=== PATIENT | male | born 1930 | race Caucasian/White ===

== ENCOUNTER 2017-11-19 11:39 | Day surgery (SDC) | payer OTHER ==
--- OUTSIDE RECORDS SUMMARY | 2017-11-19 11:49 | XMS REPORT | Clinical Summary ---
:1930 Author Organization [facility] Address [address] [place] [address] Care Team Providers Name Role Phone Hetal Perez MD Primary Care Provider Allergies No Known Allergies Current Medications Prescription Sig. Disp. Refills Start End Status Date Date FOLIC Take by Active ACID/MULTIVIT-MIN/LUTEIN mouth. (CENTRUM SILVER ORAL) cholecalciferol, vitamin Take 2,000 Active D3, (VITAMIN D3) 2,000 Units by unit capsule capsule mouth daily. mometasone (NASONEX) 50 2 sprays into 17 g 11 09/29/19 Active mcg/actuation nasal each nostril 17 sprayIndications: Seasonal daily. allergic rhinitis due to pollen cyanocobalamin 1,000 Inject 1,000 Active mcg/mL injection mcg into the shoulder, thigh, or buttocks once. carboxymethylcellulose 1 % Apply to eye. Active ophthalmic solution prednisoLONE acetate (PRED 2 drops. 03/09/19 Active FORTE) 1 % ophthalmic 16 suspension busPIRone (BUSPAR) 5 MG TAKE 1 TABLET 90 tablet 0 09/05/19 Active tabletIndications: BY MOUTH ONCE 18 Generalized anxiety DAILY disorder amLODIPine (NORVASC) 2.5 TAKE 1 TABLET 90 tablet 0 10/12/19 Active mg tabletIndications: BY MOUTH 18 Essential hypertension DAILY gabapentin (NEURONTIN) 300 Take 300 mg Active mg capsule by mouth 3 (three) times a day. tamsulosin (FLOMAX) 0.4 mg Take 0.4 mg Active capsule by mouth daily. denosumab (PROLIA) 60 Inject 60 mg Active mg/mL syringe syringe under the skin once. escitalopram (LEXAPRO) 5 Take 2.5 mg Active MG tablet by mouth daily. esomeprazole (NexIUM) 40 Take 40 mg by Active MG capsule mouth daily before breakfast. cimetidine (TAGAMET HB) Take 200 mg Active 200 MG tablet by mouth 2 (two) times a day. vitamins Take 1 Active A,C,R-pzba-jxlcpm capsule by (PRESERVISION AREDS) mouth daily. [id number] hzgi-yj-aeeb capsule acetaminophen (TYLENOL) Take 1 tablet 40 tablet 0 10/30/19 Active 500 MG tablet (500 mg 18 018 total) by mouth every 6 (six) hours as needed for fever (fever > 100) for up to 30 days. FERUMOXYTOL IV Infuse into a Discontinued venous 018 catheter. denosumab (PROLIA) 60 Inject 60 mg Discontinued mg/mL syringe syringe under the 018 skin once. Every 6 tmonths cycloSPORINE (RESTASIS) Administer 1 Discontinued 0.05 % ophthalmic emulsion drop to both 018 eyes every 12 (twelve) hours. acetaminophen (TYLENOL) Take 325 mg Discontinued 325 MG tablet by mouth 018 every 6 (six) hours as needed for fever. busPIRone (BUSPAR) 5 MG Take 1 tablet 90 tablet 1 09/29/19 Discontinued tabletIndications: (5 mg total) 17 018 Generalized anxiety by mouth disorder daily. tamsulosin (FLOMAX) 0.4 mg Take 1 90 capsule 3 09/29/19 Discontinued capsule,extended release capsule (0.4 17 018 24hrIndications: Benign mg total) by prostatic hyperplasia mouth daily. without lower urinary tract symptoms, unspecified morphology amLODIPine (NORVASC) 2.5 Take 1 tablet 90 tablet 3 09/29/19 Discontinued mg tabletIndications: (2.5 mg 17 018 Essential hypertension total) by mouth daily. denosumab (PROLIA) 60 Inject 60 mg Discontinued mg/mL syringe syringe under the 018 skin once. esomeprazole (NexIUM) 40 Take 1 30 capsule 11 05/10/19 Discontinued MG capsuleIndications: AVM capsule (40 18 018 (arteriovenous mg total) by malformation) of small mouth daily bowel, acquired, before Angiodysplasia of stomach breakfast. busPIRone (BUSPAR) 5 MG TAKE 1 TABLET 90 tablet 0 05/22/19 Discontinued tabletIndications: BY MOUTH 18 018 Generalized anxiety DAILY disorder escitalopram (LEXAPRO) 5 Take 1 tablet 90 tablet 2 06/22/19 MG tablet (5 mg total) 18 018 by mouth daily for 90 days. acetaminophen (TYLENOL) Take 1,000 mg Discontinued 500 MG tablet by mouth 018 every 6 (six) hours as needed for mild pain. clindamycin (CLEOCIN) 150 Take 150 mg Discontinued MG capsule by mouth 018 every 6 (six) hours. levoFLOXacin (LEVAQUIN) Take 1 tablet 10 tablet 0 10/30/19 500 MG tablet (500 mg 18 018 total) by mouth every other day for 10 days. doxycycline (VIBRAMYCIN) Take 1 20 capsule 0 10/30/19 100 MG capsule capsule (100 18 018 mg total) by mouth 2 (two) times a day for 10 days. Active Problems Problem Noted Date SIRS (systemic inflammatory response syndrome) (HCC) 10/24/2017 Iron deficiency anemia due to chronic blood loss 10/23/2017 Fe deficiency anemia 10/23/2017 Seasonal allergic rhinitis due to pollen 09/28/2016 Overview: Uses nasonex which allievates symptoms of rhinitis and nasal congestion Last Assessment & Plan: Continue on nasaonex; refills for 1 year provided Essential hypertension 09/28/2016 Overview: On low dose amlodipine 2.5 mg; no changes per cards; BP slightly elevated in office but usually per runs low. Last Assessment & Plan: Hypertension is unchanged. Continue current treatment regimen. Blood pressure will be reassessed at the next regular appointment. Amaurosis fugax of left eye 07/06/2016 Overview: Overview: Underwent CEA not stent due to risk of bleeding from AVMs Bradycardia by electrocardiogram 07/06/2016 Overview: EAB on outside images - repeat with cards - Dr. Garcia - notes reviewed. 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 Last Assessment & Plan: Refills for flomax provided. Chronic kidney disease, stage III (moderate) ([facility]) 01/28/2016 Overview: Dr. Le; Stage 3 stable; monitor calcium levels. Pernicious anemia 11/30/2015 Overview: Dr. Bone Stroke ([facility]) 11/30/2015 Iron deficiency anemia 06/01/2015 Overview: Feeling very tired and head throbs and usually feels this way when needs transfusion; last transfusion was 2 weeks ago. Last Assessment & Plan: Recheck cbc Anxiety disorder 04/22/2014 Overview: Well controllled with buspar prn Osteoporosis 01/21/2014 Overview: On prolia - Bone density study, 06/03/2013 - patient FRAX score indicated treatment with bisphosphates; did not tolerate fosamax and reclast not an option given renal dysfunction and patient was started on prolia with good results. Improvement of T score noted on bone density 2016 AP spine (L1-L4) BMD: 1.471 g/cm2 T-Score: 2.2 Dual Femur (Total Mean): BMD: 0.842 g/cm2 T-Score: -1.3 2013 Bone mineral density measurement Lumbar spine 1.546 gm/cm2 Femoral neck 0.808 gm/cm2 Standard deviation from young adult population (T-score) Lumbar spine 2.7 Femoral neck -2.0 Standard deviation for age adjusted population (Z-score) Lumbar spine 3.4 Femoral neck -0.4 Last Assessment & Plan: next infusion due in October; needs referral to see Dr. Greene formally to get prolia if still indicated. Needs vit D and calcium levels checked prior to prolia. Angiodysplasia of stomach Overview: Per Dr. Combs; AVM (arteriovenous malformation) of small bowel, acquired Encounters Date Type Specialty Care Team Description 11/15/2017 Telephone Internal Medicine Hetal Perez MD 11/14/2017 Infusion Oncology Jocelyne Bone Iron deficiency anemiaStarla MD unspecified iron deficiency anemia type (Primary Dx) 11/07/2017 Infusion Oncology Jocelyne Bone Iron deficiency anemiaStarla MD unspecified iron Champagne, deficiency anemia type GABRIELA Stokes (Primary Dx) 11/06/2017 Lab Lab Jocelyne Bone MD 11/06/2017 Orders Only Hematology and Mary, Oncology Albian, CASE MANAGEMENT COORDINATOR 10/31/2017 Infusion Oncology Jocelyne Bone Iron deficiency anemiaStarla MD unspecified iron Gardianos, deficiency anemia type GABRIELA Last (Primary Dx) 10/30/2017 Orders Only Oncology Neo Pierre RN 10/23/2017 Hospital Encounter General Internal Michelle Wyatth - Dony Guzmán MD 10/29/2017 Mynor Godoy MD 10/23/2017 Orders Only Oncology Neo Pierre RN 10/17/2017 Infusion Oncology Jocelyne Bone Iron deficiency anemiaStarla MD unspecified iron Angelia, deficiency anemia type GABRIELA Aly (Primary Dx) 10/11/2017 Refill Internal Medicine Chris, Essential hypertension Hetal Fernandez MD 10/03/2017 Infusion Oncology Jocelyne Bone Iron deficiency anemiaStarla MD unspecified iron deficiency anemia type (Primary Dx) 09/19/2017 Infusion Oncology Jocelyne Bone Iron deficiency anemiaStarla MD unspecified iron deficiency anemia type (Primary Dx) 09/12/2017 Infusion Oncology Jocelyne Bone Iron deficiency anemiaStarla MD unspecified iron Angelia, deficiency anemia type GABRIELA Aly (Primary Dx) 09/11/2017 Orders Only Oncology Neo Pierre RN 09/10/2017 Lab Lab Jocelyne Bone MD 09/10/2017 Orders Only Hematology and Mary, Oncology Albina, CASE MANAGEMENT COORDINATOR 09/05/2017 Infusion Oncology Jocelyne Bone Iron deficiency anemiaStarla MD unspecified iron deficiency anemia type (Primary Dx) 09/05/2017 Orders Only Oncology Neo Pierre RN 09/04/2017 Refill Internal Medicine Chris, Generalized anxiety kassie Lutz MD 08/31/2017 Hospital Encounter Hematology and Jocelyne Bone Iron deficiency anemia, Oncology MD Starla unspecified iron deficiency anemia type 08/30/2017 Lab Lab Jocelyne Bone Blood loss anemia MD Starla (Primary Dx) 08/30/2017 Orders Only Hematology and Mary, Oncology Albina, CASE MANAGEMENT COORDINATOR 08/23/2017 Infusion Oncology Jocelyne Bone Iron deficiency anemiaStarla MD unspecified iron deficiency anemia type (Primary Dx) 08/23/2017 Orders Only Oncology Rosanna Rosas RN 08/08/2017 Infusion Oncology Jocelyne Bone Iron deficiency anemiaStarla MD unspecified iron Jayson, deficiency anemia type Sveta RN (Primary Dx) 07/26/2017 Infusion Oncology Jocelyne Bone Iron deficiency anemiaStarla MD unspecified iron deficiency anemia type (Primary Dx) 07/25/2017 Infusion Oncology Jocelyne Bone Iron deficiency anemiaStarla MD unspecified iron deficiency anemia type (Primary Dx) 07/25/2017 Orders Only Oncology Neo Pierre RN 07/11/2017 Infusion Oncology Jcoelyne Bone Iron deficiency anemiaStarla MD unspecified iron Jayson, deficiency anemia type GABRIELA Bangura (Primary Dx) 07/06/2017 Infusion Oncology Jocelyne Bone Iron deficiency anemiaStarla MD unspecified iron deficiency anemia type (Primary Dx) 07/06/2017 Orders Only Oncology Rosanna Rosas RN 07/03/2017 Orders Only Hematology and Mary, Oncology Albina, CASE MANAGEMENT COORDINATOR 06/27/2017 Infusion Oncology Jocelyne Bone Iron deficiency Starla gardner MD unspecified iron deficiency anemia type (Primary Dx) 06/22/2017 Infusion Oncology Jocelyne Bone Iron deficiency anemiaStarla MD unspecified iron deficiency anemia type (Primary Dx) 06/22/2017 Orders Only Oncology Rosanna Rosas RN 06/21/2017 Office Visit Internal Medicine Chris, Annual physical exam ( Primary Dx); Kimani Lutz regarding end of life decision making 06/20/2017 Orders Only Hematology and Mary, Oncology Albina, CASE MANAGEMENT COORDINATOR 06/20/2017 Orders Only Hematology and Mary, Oncology Albina, CASE MANAGEMENT COORDINATOR 06/13/2017 Hospital Encounter Hematology and Jocelyne Bone Iron deficiency anemia, Oncology MD Starla unspecified iron deficiency anemia type 06/11/2017 Lab Lab Jocelyne Bone MD 06/11/2017 Orders Only Hematology and Mary, Oncology Albina, CASE MANAGEMENT COORDINATOR 06/07/2017 Hospital Encounter Hematology and Jocelyne Bone Iron deficiency anemia, Oncology MD Starla unspecified iron deficiency anemia type 06/06/2017 Hospital Encounter Hematology and Jocelyne Bone Iron deficiency anemia, Oncology MD Starla unspecified iron deficiency anemia type 05/31/2017 Lab Lab Jocelyne Bone Common variable agammaglobulinemia ( Primary Dx); MD Starla Blood loss anemia 05/31/2017 Hospital Encounter Hematology and Jocelyne Bone Iron deficiency anemia, Oncology MD Starla unspecified iron deficiency anemia type 05/29/2017 Orders Only Hematology and Mary, Oncology HERMINIA Montemayor 05/23/2017 Hospital Encounter Hematology and Jocelyne Bone Iron deficiency anemia, Oncology MD Starla unspecified iron deficiency anemia type 05/22/2017 Lab Lab Jocelyne Bone Blood loss anemia MD Starla (Primary Dx) 05/22/2017 Orders Only Hematology and Mary, Oncology HERMINIA Montemayor 05/21/2017 Hospital Encounter Gastroenterology Garret, Iron deficiency anemia, unspecified iron deficiency anemia type (Primary Dx); Arcenio Pernicious anemia; MD Aiden Cerebrovascular accident (CVA), unspecified mechanism; Angiodysplasia of stomach; AVM (arteriovenous malformation) of small bowel, acquired; Generalized anxiety disorder; Benign prostatic hyperplasia without lower urinary tract symptoms; Temporary cerebral vascular dysfunction; Chronic kidney disease, stage III (moderate) 05/21/2017 Refill Internal Medicine Sadi Perez anxiety Hetal kassie Fernandez MD 05/21/2017 Anesthesia Event Gastroenterology Jabari Luna MD 05/21/2017 Procedure Pass Gastroenterology 05/21/2017 Surgery Gastroenterology Garret EGD W/ SMALL BOWEL Arcenio ENTEROSCOPY with APC to MD Aiden AVM's 05/17/2017 Hospital Encounter Hematology and Jocelyne Bone Iron deficiency anemia, Oncology MD Starla unspecified iron deficiency anemia type 05/16/2017 Hospital Encounter Hematology and Jocelyne Bone deficiency anemia, Oncology MD Starla unspecified iron deficiency anemia type 05/10/2017 Hospital Encounter Hematology and Jocelyne Bone Iron deficiency anemia, Oncology MD Starla unspecified iron deficiency anemia type 05/09/2017 Office Visit Gastroenterology Garret AVM (arteriovenous malformation) of small bowel, acquired (Primary Dx); Arcenio Angiodysplasia of stomach MD Aiden 05/09/2017 Lab Lab Jocelyne Bone Canceled (Scheduling MD Starla Error) 05/09/2017 Lab Lab Jocelyne Bone Blood loss anemia MD Starla (Primary Dx) 05/09/2017 Documentation Gastroenterology Deirdre Felix MA 05/08/2017 Orders Only Hematology and Mary, Oncology Albina, CASE MANAGEMENT COORDINATOR 04/27/2017 Hospital Encounter Hematology and Jocelyne Bone Iron deficiency anemia, Oncology MD Starla unspecified iron deficiency anemia type 04/25/2017 Hospital Encounter Hematology and Jocelyne Bone Iron deficiency anemia, Oncology MD Starla unspecified iron deficiency anemia type 04/20/2017 Hospital Encounter Hematology and Jocelyne Bone Iron deficiency anemia, Oncology MD Starla unspecified iron deficiency anemia type 04/19/2017 Orders Only Hematology and Mary, Oncology Albina, CASE MANAGEMENT COORDINATOR 04/19/2017 Orders Only Hematology and Mary, Oncology Albina, CASE MANAGEMENT COORDINATOR 04/12/2017 Hospital Encounter Hematology and Jocelyne Bone Iron deficiency anemia, Oncology MD Starla unspecified iron deficiency anemia type 04/10/2017 Orders Only Hematology and Mary, Oncology Albina, CASE MANAGEMENT COORDINATOR 04/04/2017 Hospital Encounter Hematology and Jocelyne Bone Iron deficiency anemia, Oncology MD Starla unspecified iron deficiency anemia type 03/30/2017 Hospital Encounter Hematology and Jocelyne Bone Iron deficiency anemia, Oncology MD Starla unspecified iron deficiency anemia type 03/29/2017 Orders Only Hematology and Mary, Oncology Albina, CASE MANAGEMENT COORDINATOR 03/21/2017 Hospital Encounter Hematology and Jocelyne Bone Iron deficiency anemia, unspecified iron deficiency anemia type; Oncology MD Starla AVM (arteriovenous malformation) of small bowel, acquired 03/16/2017 Orders Only Hematology and Mary, Oncology Albina, CASE MANAGEMENT COORDINATOR 03/14/2017 Hospital Encounter Hematology and Jocelyne Bone Canceled Oncology MD Starla (Department/Provider) 03/13/2017 Hospital Encounter Hematology and Jocelyne Bone Iron deficiency anemia, Oncology MD Starla unspecified iron deficiency anemia type 03/13/2017 Orders Only Hematology and Mary, Oncology Albina, CASE MANAGEMENT COORDINATOR 03/05/2017 Office Visit Rheumatology Jc, Osteopenia of both thighs ( Primary Dx); Torrey Shepherd MD Primary osteoarthritis of both hands; Angiodysplasia of stomach 02/28/2017 Hospital Encounter Hematology and Jocelyne Bone Iron deficiency anemia, Oncology MD Starla unspecified iron deficiency anemia type 02/27/2017 Orders Only Hematology and Mary, Oncology Albina, CASE MANAGEMENT COORDINATOR 02/15/2017 Hospital Encounter Hematology and Jocelyne Bone Iron deficiency anemia, Oncology MD Starla unspecified iron deficiency anemia type 02/08/2017 Hospital Encounter Hematology and Jocelyne Bone Iron deficiency anemia, Oncology MD Starla unspecified iron deficiency anemia type 02/08/2017 Orders Only Hematology and Mary, Oncology Albina, CASE MANAGEMENT COORDINATOR 02/08/2017 Orders Only Hematology and Mary, Oncology Albina, CASE MANAGEMENT COORDINATOR 02/07/2017 Orders Only Hematology and Mary, Oncology Albina, CASE MANAGEMENT COORDINATOR 01/19/2017 Hospital Encounter Hematology and Jocelyne Bone Iron deficiency anemia, Oncology MD Starla unspecified iron deficiency anemia type 01/17/2017 Hospital Encounter Hematology and Jocelyne Bone Iron deficiency anemia, Oncology MD Starla unspecified iron deficiency anemia type 12/27/2016 Hospital Encounter Hematology and Jocelyne Bone Iron deficiency anemia, Oncology MD Starla unspecified iron deficiency anemia type 12/21/2016 Hospital Encounter Hematology and Jocelyne Bone Iron deficiency anemia, Oncology MD Starla unspecified iron deficiency anemia type 12/21/2016 Orders Only Hematology and Mary, Oncology Albina, CASE MANAGEMENT COORDINATOR 12/20/2016 Hospital Encounter Hematology and oJcelyne Bone Iron deficiency anemia, Oncology MD Starla unspecified iron deficiency anemia type 12/14/2016 [facility] ChrisHetal MD 12/13/2016 Hospital Encounter Hematology and Jocelyne Bone Iron deficiency anemia, Oncology MD Starla unspecified iron deficiency anemia type 12/11/2016 Orders Only Hematology and Mary, Oncology Albina, CASE MANAGEMENT COORDINATOR 12/05/2016 Hospital Encounter Hematology and Jocelyne Bone Iron deficiency anemia, Oncology MD Starla unspecified iron deficiency anemia type 12/04/2016 Lab Lab Jocelyne Bone MD 12/04/2016 Orders Only Hematology and Mary Oncology Albina, CASE MANAGEMENT COORDINATOR 11/24/2016 Hospital Encounter Hematology and Jocelyne Bone Iron deficiency anemia, Oncology MD Starla unspecified iron deficiency anemia type 11/22/2016 Orders Only Hematology and Mary Oncology Albina CASE MANAGEMENT COORDINATOR after 11/18/2016 Immunizations Name Dates Previously Given Next Due FLUCELVAX QUAD PF (0.5mL syringe) 10/24/2017 Influenza Trivalent 01/04/2016, 11/19/2013 Pneumococcal Polysaccharide 03/22/2011 Tdap 04/22/2014 Family History Medical History Relation Name Comments Aplastic anemia Mother Relation Name Status Comments Father Mother Social History Tobacco Use Types Packs/Day Years Used Date Never Smoker Smokeless Tobacco: Never Used Alcohol Use Drinks/Week oz/Week Comments No Sex Assigned at Date Recorded Not on file Last Filed Vital Signs Vital Sign Reading Time Taken Blood Pressure 118/58 11/14/2017 3:15 PM CDT Pulse 69 11/14/2017 3:15 PM CDT Temperature 36.2 C (97.1 F) 11/14/2017 3:15 PM CDT Respiratory Rate 18 11/14/2017 3:15 PM CDT Oxygen Saturation 97% 11/14/2017 3:15 PM CDT Inhaled Oxygen Concentration - - Weight 78.7 kg (173 lb 6.4 oz) 11/14/2017 9:17 AM CDT Height 175.3 cm (5' 9") 11/14/2017 9:17 AM CDT Body Mass Index 25.61 11/14/2017 9:17 AM CDT Plan of Treatment Date Type Specialty Care Team Description 11/28/2017 Infusion Oncology Jocelyne Bone MD [address] [place] [address] [phone] 12/12/2017 Infusion Oncology Jocelyne Bone MD [address] [place] [address] [phone] 12/26/2017 Infusion Oncology Jocelyne Bone MD [address] [place] [address] [phone] Health Maintenance Due Date Last Done Comments SHINGRIX VACCINE (#1) 01/03/1980 ZOSTER VACCINE 1990 PNEUMOCOCCAL-13 1995 PNEUMOCOCCAL POLYSACCHARIDE VACCINE Completed 03/22/2011 AGE 65 AND OVER INFLUENZA VACCINE Completed 10/24/2017, 01/04/2016, 11/19/2013 Procedures Procedure Name Priority Date/Time Associated Comments Diagnosis TRANSFUSE RED BLOOD CELLS Routine 11/14/2017 Iron deficiency 3:36 PM CDT anemia, unspecified iron deficiency anemia type TRANSFUSE RED BLOOD CELLS Routine 11/14/2017 Iron deficiency 1:31 PM CDT anemia, unspecified iron deficiency anemia type PREPARE RBC Timed 11/14/2017 Iron deficiency Results for 9:51 AM CDT anemia, this procedure unspecified iron are in the deficiency results anemia type section. TYPE AND SCREEN Timed 11/14/2017 Iron deficiency Results for 9:51 AM CDT anemia, this procedure unspecified iron are in the deficiency results anemia type section. SMEAR REVIEW Routine 11/14/2017 Results for 9:34 AM CDT this procedure are in the results section. HC COMPLETE BLD COUNT W/AUTO Routine 11/14/2017 Iron deficiency Results for DIFF 9:34 AM CDT anemia, this procedure unspecified iron are in the deficiency results anemia type section. TRANSFUSE RED BLOOD CELLS Routine 11/07/2017 Iron deficiency 3:33 PM CDT anemia, unspecified iron deficiency anemia type TRANSFUSE RED BLOOD CELLS Routine 11/07/2017 Iron deficiency 12:45 PM CDT anemia, unspecified iron deficiency anemia type PREPARE RBC Routine 11/06/2017 Results for 9:32 AM CDT this procedure are in the results section. TYPE AND SCREEN Routine 11/06/2017 Results for 9:32 AM CDT this procedure are in the results section. TRANSFUSE RED BLOOD CELLS STAT 10/31/2017 Iron deficiency 1:10 PM CDT anemia, unspecified iron deficiency anemia type MANUAL DIFFERENTIAL Routine 10/31/2017 Results for 9:19 AM CDT this procedure are in the results section. CBC WITH PLATELET AND Routine 10/31/2017 Iron deficiency Results for DIFFERENTIAL 9:19 AM CDT anemia, this procedure unspecified iron are in the deficiency results anemia type section. PREPARE RBC Timed 10/31/2017 Iron deficiency Results for 8:57 AM CDT anemia, this procedure unspecified iron are in the deficiency results anemia type section. TYPE AND SCREEN Timed 10/31/2017 Iron deficiency Results for 8:57 AM CDT anemia, this procedure unspecified iron are in the deficiency results anemia type section. CBC WITH PLATELET AND Routine 10/29/2017 Results for DIFFERENTIAL 6:20 AM CDT this procedure are in the results section. ZZESTIMATED GFR Routine 10/28/2017 Results for 9:19 AM CDT this procedure are in the results section. BASIC METABOLIC PANEL Routine 10/28/2017 Results for 9:19 AM CDT this procedure are in the results section. CBC WITH PLATELET AND Routine 10/28/2017 Results for DIFFERENTIAL 5:50 AM CDT this procedure are in the results section. CBC WITH PLATELET AND Routine 10/27/2017 Results for DIFFERENTIAL 5:30 AM CDT this procedure are in the results section. PREPARE RBC Timed 10/26/2017 Results for 11:09 AM CDT this procedure are in the results section. PREPARE RBC Timed 10/26/2017 Results for 11:09 AM CDT this procedure are in the results section. TYPE AND SCREEN Timed 10/26/2017 Results for 11:09 AM CDT this procedure are in the results section. HEMOGLOBIN & HEMATOCRIT Routine 10/26/2017 Results for 7:13 AM CDT this procedure are in the results section. SMEAR REVIEW Routine 10/26/2017 Results for 4:20 AM CDT this procedure are in the results section. CBC WITH PLATELET AND Routine 10/26/2017 Results for DIFFERENTIAL 4:20 AM CDT this procedure are in the results section. ZZESTIMATED GFR Routine 10/26/2017 Results for 4:00 AM CDT this procedure are in the results section. CREATINE KINASE, TOTAL (CPK) Routine 10/26/2017 Results for 4:00 AM CDT this procedure are in the results section. BASIC METABOLIC PANEL Routine 10/26/2017 Results for 4:00 AM CDT this procedure are in the results section. VANCOMYCIN LEVEL, TROUGH Timed 10/25/2017 Results for 1:00 PM CDT this procedure are in the results section. ZZESTIMATED GFR Routine 10/25/2017 Results for 5:15 AM CDT this procedure are in the results section. PARATHYROID HORMONE Routine 10/25/2017 Results for 5:15 AM CDT this procedure are in the results section. BASIC METABOLIC PANEL Routine 10/25/2017 Results for 5:15 AM CDT this procedure are in the results section. US RENAL Routine 10/24/2017 Results for 6:25 PM CDT this procedure are in the results section. XR CHEST 1 VW PORTABLE Routine 10/24/2017 Results for 9:29 AM CDT this procedure are in the results section. SMEAR REVIEW Routine 10/24/2017 Results for 6:00 AM CDT this procedure are in the results section. HC COMPLETE BLD COUNT W/AUTO Routine 10/24/2017 Results for DIFF 6:00 AM CDT this procedure are in the results section. ZZESTIMATED GFR Routine 10/24/2017 Results for 4:00 AM CDT this procedure are in the results section. BASIC METABOLIC PANEL Routine 10/24/2017 Results for 4:00 AM CDT this procedure are in the results section. URINALYSIS SCREEN AND Routine 10/24/2017 Results for MICROSCOPY, WITH REFLEX TO 12:30 AM CDT this procedure CULTURE are in the results section. URINE CULTURE Routine 10/24/2017 Results for 12:30 AM CDT this procedure are in the results section. US DUPLEX VENOUS LOWER EXTREMITY Routine 10/23/2017 Results for BILATERAL 5:05 PM CDT this procedure are in the results section. BLOOD CULTURE, AEROBIC & Routine 10/23/2017 Results for ANAEROBIC 4:25 PM CDT this procedure are in the results section. BLOOD CULTURE, AEROBIC & Routine 10/23/2017 Results for ANAEROBIC 4:25 PM CDT this procedure are in the results section. ZZESTIMATED GFR Routine 10/23/2017 Results for 3:23 PM CDT this procedure are in the results section. BASIC METABOLIC PANEL Routine 10/23/2017 Results for 3:23 PM CDT this procedure are in the results section. PREPARE RBC Timed 10/23/2017 Results for 2:30 PM CDT this procedure are in the results section. TYPE AND SCREEN Timed 10/23/2017 Results for 2:30 PM CDT this procedure are in the results section. TRANSFUSE RED BLOOD CELLS STAT 10/17/2017 Iron deficiency 4:35 PM CDT anemia, unspecified iron deficiency anemia type TRANSFUSE RED BLOOD CELLS STAT 10/17/2017 Iron deficiency 2:50 PM CDT anemia, unspecified iron deficiency anemia type PREPARE RBC Timed 10/17/2017 Iron deficiency Results for 9:50 AM CDT anemia, this procedure unspecified iron are in the deficiency results anemia type section. MANUAL DIFFERENTIAL Routine 10/17/2017 Results for 9:50 AM CDT this procedure are in the results section. TYPE AND SCREEN Routine 10/17/2017 Iron deficiency Results for 9:50 AM CDT anemia, this procedure unspecified iron are in the deficiency results anemia type section. CBC WITH PLATELET AND Routine 10/17/2017 Iron deficiency Results for DIFFERENTIAL 9:50 AM CDT anemia, this procedure unspecified iron are in the deficiency results anemia type section. TRANSFUSE RED BLOOD CELLS STAT 10/03/2017 Iron deficiency 5:01 PM CDT anemia, unspecified iron deficiency anemia type TRANSFUSE RED BLOOD CELLS STAT 10/03/2017 Iron deficiency 2:15 PM CDT anemia, unspecified iron deficiency anemia type MANUAL DIFFERENTIAL Routine 10/03/2017 Results for 9:33 AM CDT this procedure are in the results section. CBC WITH PLATELET AND Routine 10/03/2017 Iron deficiency Results for DIFFERENTIAL 9:33 AM CDT anemia, this procedure unspecified iron are in the deficiency results anemia type section. PREPARE RBC Timed 10/03/2017 Iron deficiency Results for 9:21 AM CDT anemia, this procedure unspecified iron are in the deficiency results anemia type section. TYPE AND SCREEN Timed 10/03/2017 Iron deficiency Results for 9:21 AM CDT anemia, this procedure unspecified iron are in the deficiency results anemia type section. TRANSFUSE RED BLOOD CELLS STAT 09/19/2017 Iron deficiency 2:03 PM CDT anemia, unspecified iron deficiency anemia type TYPE AND SCREEN Routine 09/19/2017 Iron deficiency Results for 9:20 AM CDT anemia, this procedure unspecified iron are in the deficiency results anemia type section. HC COMPLETE BLD COUNT W/AUTO STAT 09/19/2017 Iron deficiency Results for DIFF 9:20 AM CDT anemia, this procedure unspecified iron are in the deficiency results anemia type section. PREPARE RBC Timed 09/19/2017 Iron deficiency Results for 9:14 AM CDT anemia, this procedure unspecified iron are in the deficiency results anemia type section. TRANSFUSE RED BLOOD CELLS Routine 09/12/2017 Iron deficiency 2:48 PM CDT anemia, unspecified iron deficiency anemia type TRANSFUSE RED BLOOD CELLS Routine 09/12/2017 Iron deficiency 2:46 PM CDT anemia, unspecified iron deficiency anemia type PREPARE RBC Routine 09/10/2017 Results for 1:40 PM CDT this procedure are in the results section. TYPE AND SCREEN Routine 09/10/2017 Results for 1:40 PM CDT this procedure are in the results section. HC COMPLETE BLD COUNT W/AUTO STAT 09/05/2017 Iron deficiency Results for DIFF 9:00 AM CDT anemia, this procedure unspecified iron are in the deficiency results anemia type section. TYPE AND SCREEN STAT 09/05/2017 Iron deficiency Results for 8:59 AM CDT anemia, this procedure unspecified iron are in the deficiency results anemia type section. TRANSFUSE RED BLOOD CELLS Routine 09/03/2017 Iron deficiency 11:20 AM CDT anemia, unspecified iron deficiency anemia type TRANSFUSE RED BLOOD CELLS Routine 08/31/2017 Iron deficiency 11:43 AM CDT anemia, unspecified iron deficiency anemia type PREPARE RBC Routine 08/30/2017 Results for 11:02 AM CDT this procedure are in the results section. TYPE AND SCREEN Routine 08/30/2017 Blood loss Results for 11:02 AM CDT anemia this procedure are in the results section. HC COMPLETE BLD COUNT W/AUTO Routine 08/30/2017 Blood loss Results for DIFF 11:02 AM CDT anemia this procedure are in the results section. TRANSFUSE RED BLOOD CELLS STAT 08/23/2017 Iron deficiency 3:49 PM CDT anemia, unspecified iron deficiency anemia type TRANSFUSE RED BLOOD CELLS STAT 08/23/2017 Iron deficiency 2:22 PM CDT anemia, unspecified iron deficiency anemia type PREPARE RBC Timed 08/23/2017 Iron deficiency Results for 9:42 AM CDT anemia, this procedure unspecified iron are in the deficiency results anemia type section. SMEAR REVIEW Routine 08/23/2017 Results for 9:42 AM CDT this procedure are in the results section. TYPE AND SCREEN Routine 08/23/2017 Iron deficiency Results for 9:42 AM CDT anemia, this procedure unspecified iron are in the deficiency results anemia type section. HC COMPLETE BLD COUNT W/AUTO Routine 08/23/2017 Iron deficiency Results for DIFF 9:42 AM CDT anemia, this procedure unspecified iron are in the deficiency results anemia type section. TRANSFUSE RED BLOOD CELLS STAT 08/08/2017 Iron deficiency 1:24 PM CDT anemia, unspecified iron deficiency anemia type PREPARE RBC Timed 08/08/2017 Iron deficiency Results for 9:34 AM CDT anemia, this procedure unspecified iron are in the deficiency results anemia type section. TYPE AND SCREEN Timed 08/08/2017 Iron deficiency Results for 9:34 AM CDT anemia, this procedure unspecified iron are in the deficiency results anemia type section. HC COMPLETE BLD COUNT W/AUTO Routine 08/08/2017 Iron deficiency Results for DIFF 9:34 AM CDT anemia, this procedure unspecified iron are in the deficiency results anemia type section. TRANSFUSE RED BLOOD CELLS Routine 07/26/2017 Iron deficiency 2:02 PM CDT anemia, unspecified iron deficiency anemia type TRANSFUSE RED BLOOD CELLS Routine 07/26/2017 Iron deficiency 11:28 AM CDT anemia, unspecified iron deficiency anemia type HC COMPLETE BLD COUNT W/AUTO Routine 07/25/2017 Iron deficiency Results for DIFF 10:01 AM CDT anemia, this procedure unspecified iron are in the deficiency results anemia type section. PREPARE RBC Timed 07/25/2017 Iron deficiency Results for 9:59 AM CDT anemia, this procedure unspecified iron are in the deficiency results anemia type section. TYPE AND SCREEN Timed 07/25/2017 Iron deficiency Results for 9:59 AM CDT anemia, this procedure unspecified iron are in the deficiency results anemia type section. TRANSFUSE RED BLOOD CELLS Routine 07/11/2017 Iron deficiency 5:06 PM CDT anemia, unspecified iron deficiency anemia type PREPARE RBC Timed 07/11/2017 Iron deficiency Results for 9:36 AM CDT anemia, this procedure unspecified iron are in the deficiency results anemia type section. TYPE AND SCREEN Timed 07/11/2017 Iron deficiency Results for 9:36 AM CDT anemia, this procedure unspecified iron are in the deficiency results anemia type section. HC COMPLETE BLD COUNT W/AUTO Routine 07/11/2017 Iron deficiency Results for DIFF 9:36 AM CDT anemia, this procedure unspecified iron are in the deficiency results anemia type section. TRANSFUSE RED BLOOD CELLS Routine 07/06/2017 Iron deficiency 2:47 PM CDT anemia, unspecified iron deficiency anemia type TRANSFUSE RED BLOOD CELLS Routine 07/06/2017 Iron deficiency 2:45 PM CDT anemia, unspecified iron deficiency anemia type PREPARE RBC Timed 07/06/2017 Iron deficiency Results for 8:02 AM CDT anemia, this procedure unspecified iron are in the deficiency results anemia type section. TYPE AND SCREEN Timed 07/06/2017 Iron deficiency Results for 8:02 AM CDT anemia, this procedure unspecified iron are in the deficiency results anemia type section. TYPE AND SCREEN Routine 06/27/2017 Iron deficiency Results for 1:22 PM CDT anemia, this procedure unspecified iron are in the deficiency results anemia type section. HC COMPLETE BLD COUNT W/AUTO Routine 06/27/2017 Iron deficiency Results for DIFF 12:59 PM CDT anemia, this procedure unspecified iron are in the deficiency results anemia type section. TRANSFUSE RED BLOOD CELLS Routine 06/22/2017 Iron deficiency 1:51 PM CDT anemia, unspecified iron deficiency anemia type PREPARE RBC STAT 06/22/2017 Iron deficiency Results for 8:00 AM CDT anemia, this procedure unspecified iron are in the deficiency results anemia type section. TYPE AND SCREEN STAT 06/22/2017 Iron deficiency Results for 8:00 AM CDT anemia, this procedure unspecified iron are in the deficiency results anemia type section. TRANSFUSE RED BLOOD CELLS Routine 06/13/2017 Iron deficiency 3:26 PM CDT anemia, unspecified iron deficiency anemia type TRANSFUSE RED BLOOD CELLS Routine 06/13/2017 Iron deficiency 11:34 AM CDT anemia, unspecified iron deficiency anemia type PREPARE RBC Routine 06/11/2017 Results for 8:00 AM CDT this procedure are in the results section. TYPE AND SCREEN Routine 06/11/2017 Results for 8:00 AM CDT this procedure are in the results section. TRANSFUSE RED BLOOD CELLS Routine 06/07/2017 Iron deficiency 3:02 PM CDT anemia, unspecified iron deficiency anemia type TRANSFUSE RED BLOOD CELLS Routine 06/07/2017 Iron deficiency 11:58 AM CDT anemia, unspecified iron deficiency anemia type PREPARE RBC Timed 06/06/2017 Iron deficiency Results for 1:03 PM CDT anemia, this procedure unspecified iron are in the deficiency results anemia type section. SMEAR REVIEW Routine 06/06/2017 Results for 1:03 PM CDT this procedure are in the results section. TYPE AND SCREEN Timed 06/06/2017 Iron deficiency Results for 1:03 PM CDT anemia, this procedure unspecified iron are in the deficiency results anemia type section. HC COMPLETE BLD COUNT W/AUTO Routine 06/06/2017 Iron deficiency Results for DIFF 1:03 PM CDT anemia, this procedure unspecified iron are in the deficiency results anemia type section. TRANSFUSE RED BLOOD CELLS Routine 05/31/2017 Iron deficiency 3:55 PM CDT anemia, unspecified iron deficiency anemia type TRANSFUSE RED BLOOD CELLS Routine 05/31/2017 Iron deficiency 12:54 PM CDT anemia, unspecified iron deficiency anemia type PREPARE RBC Routine 05/31/2017 Results for 8:20 AM CDT this procedure are in the results section. 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 TRANSFUSE RED BLOOD CELLS Routine 05/23/2017 Iron deficiency 12:54 PM CDT anemia, unspecified iron deficiency anemia type PREPARE RBC Routine 05/22/2017 Blood loss Results for 1:25 PM CDT anemia this procedure are in the results section. TYPE AND SCREEN Routine 05/22/2017 Blood loss Results for 1:25 PM CDT anemia this procedure are in the results section. 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 TYPE AND SCREEN Routine 05/16/2017 Iron deficiency Results for 12:47 PM CDT anemia, this procedure unspecified iron are in the deficiency results anemia type section. HC COMPLETE BLD COUNT W/AUTO Routine 05/16/2017 Iron deficiency Results for DIFF 12:47 PM CDT anemia, this procedure unspecified iron are in the deficiency results anemia type section. TRANSFUSE RED BLOOD CELLS Routine 05/10/2017 Iron deficiency 1:15 PM CDT anemia, unspecified iron deficiency anemia type TRANSFUSE RED BLOOD CELLS Routine 05/10/2017 Iron deficiency 10:25 AM CDT anemia, unspecified iron deficiency anemia type PREPARE RBC Routine 05/09/2017 Results for 1:08 PM CDT this procedure are in the results section. TYPE AND SCREEN Routine 05/09/2017 Blood loss Results for 1:08 PM CDT anemia this procedure are in the results section. TRANSFUSE RED BLOOD CELLS Routine 04/27/2017 Iron deficiency 1:37 PM [employer] anemia, unspecified iron deficiency anemia type TRANSFUSE RED BLOOD CELLS Routine 04/27/2017 Iron deficiency 10:28 AM [employer] anemia, unspecified iron deficiency anemia type PREPARE RBC Routine 04/25/2017 Results for 1:17 PM [employer] this procedure are in the results section. TYPE AND SCREEN Routine 04/25/2017 Iron deficiency Results for 1:17 PM [employer] anemia, this procedure unspecified iron are in the deficiency results anemia type section. HC COMPLETE BLD COUNT W/AUTO Routine 04/25/2017 Iron deficiency Results for DIFF 1:17 PM [employer] anemia, this procedure unspecified iron are in the deficiency results anemia type section. TRANSFUSE RED BLOOD CELLS Routine 04/20/2017 Iron deficiency 3:22 PM [employer] anemia, unspecified iron deficiency anemia type TRANSFUSE RED BLOOD CELLS Routine 04/20/2017 Iron deficiency 12:27 PM [employer] anemia, unspecified iron deficiency anemia type PREPARE RBC Timed 04/20/2017 Iron deficiency Results for 8:29 AM [employer] anemia, this procedure unspecified iron are in the deficiency results anemia type section. TYPE AND SCREEN Timed 04/20/2017 Iron deficiency Results for 8:29 AM [employer] anemia, this procedure unspecified iron are in the deficiency results anemia type section. TRANSFUSE RED BLOOD CELLS Routine 04/12/2017 Iron deficiency 2:53 PM [employer] anemia, unspecified iron deficiency anemia type TRANSFUSE RED BLOOD CELLS Routine 04/12/2017 Iron deficiency 11:32 AM [employer] anemia, unspecified iron deficiency anemia type PREPARE RBC Timed 04/12/2017 Iron deficiency Results for 7:39 AM [employer] anemia, this procedure unspecified iron are in the deficiency results anemia type section. TYPE AND SCREEN Routine 04/12/2017 Iron deficiency Results for 7:39 AM [employer] anemia, this procedure unspecified iron are in the deficiency results anemia type section. HC COMPLETE BLD COUNT W/AUTO Routine 04/04/2017 Iron deficiency Results for DIFF 1:27 PM [employer] anemia, this procedure unspecified iron are in the deficiency results anemia type section. TRANSFUSE RED BLOOD CELLS Routine 03/30/2017 Iron deficiency 2:50 PM [employer] anemia, unspecified iron deficiency anemia type TRANSFUSE RED BLOOD CELLS Routine 03/30/2017 Iron deficiency 12:30 PM [employer] anemia, unspecified iron deficiency anemia type PREPARE RBC Timed 03/30/2017 Iron deficiency Results for 7:41 AM [employer] anemia, this procedure unspecified iron are in the deficiency results anemia type section. TYPE AND SCREEN Timed 03/30/2017 Iron deficiency Results for 7:41 AM [employer] anemia, this procedure unspecified iron are in the deficiency results anemia type section. TRANSFUSE RED BLOOD CELLS Routine 03/23/2017 Iron deficiency 2:50 PM [employer] anemia, unspecified iron deficiency anemia type TRANSFUSE RED BLOOD CELLS Routine 03/21/2017 Iron deficiency 12:54 PM [employer] anemia, unspecified iron deficiency anemia type SMEAR REVIEW Routine 03/21/2017 Results for 7:59 AM [employer] this procedure are in the results section. HC COMPLETE BLD COUNT W/AUTO Routine 03/21/2017 Iron deficiency Results for DIFF 7:59 AM [employer] anemia, this procedure unspecified iron are in the deficiency results anemia type section. PREPARE RBC Timed 03/21/2017 Iron deficiency Results for 7:49 AM [employer] anemia, this procedure unspecified iron are in the deficiency results anemia type section. TYPE AND SCREEN Timed 03/21/2017 Iron deficiency Results for 7:49 AM [employer] anemia, this procedure unspecified iron are in the deficiency results anemia type section. TRANSFUSE RED BLOOD CELLS Routine 02/28/2017 Iron deficiency 3:51 PM [employer] anemia, unspecified iron deficiency anemia type TRANSFUSE RED BLOOD CELLS Routine 02/28/2017 Iron deficiency 1:20 PM [employer] anemia, unspecified iron deficiency anemia type PREPARE RBC Timed 02/28/2017 Iron deficiency Results for 8:12 AM [employer] anemia, this procedure unspecified iron are in the deficiency results anemia type section. TYPE AND SCREEN Timed 02/28/2017 Iron deficiency Results for 8:12 AM [employer] anemia, this procedure unspecified iron are in the deficiency results anemia type section. HC COMPLETE BLD COUNT W/AUTO Routine 02/15/2017 Iron deficiency Results for DIFF 12:21 PM [employer] anemia, this procedure unspecified iron are in the deficiency results anemia type section. TRANSFUSE RED BLOOD CELLS Routine 02/08/2017 Iron deficiency 3:50 PM [employer] anemia, unspecified iron deficiency anemia type TRANSFUSE RED BLOOD CELLS Routine 02/08/2017 Iron deficiency 3:49 PM [employer] anemia, unspecified iron deficiency anemia type PREPARE RBC Timed 02/08/2017 Iron deficiency Results for 8:43 AM [employer] anemia, this procedure unspecified iron are in the deficiency results anemia type section. TYPE AND SCREEN STAT 02/08/2017 Results for 8:43 AM [employer] this procedure are in the results section. TRANSFUSE RED BLOOD CELLS Routine 01/19/2017 Iron deficiency 11:03 AM [employer] anemia, unspecified iron deficiency anemia type PREPARE RBC Timed 01/17/2017 Iron deficiency Results for 1:22 PM [employer] anemia, this procedure unspecified iron are in the deficiency results anemia type section. TYPE AND SCREEN Routine 01/17/2017 Iron deficiency Results for 1:22 PM [employer] anemia, this procedure unspecified iron are in the deficiency results anemia type section. HC COMPLETE BLD COUNT W/AUTO Routine 01/17/2017 Iron deficiency Results for DIFF 1:22 PM [employer] anemia, this procedure unspecified iron are in the deficiency results anemia type section. TYPE AND SCREEN Routine 12/27/2016 Iron deficiency Results for 1:08 PM [employer] anemia, this procedure unspecified iron are in the deficiency results anemia type section. HC COMPLETE BLD COUNT W/AUTO Routine 12/27/2016 Iron deficiency Results for DIFF 1:08 PM [employer] anemia, this procedure unspecified iron are in the deficiency results anemia type section. TRANSFUSE RED BLOOD CELLS Routine 12/21/2016 Iron deficiency 3:28 PM CDT anemia, unspecified iron deficiency anemia type TRANSFUSE RED BLOOD CELLS Routine 12/21/2016 Iron deficiency 2:45 PM CDT anemia, unspecified iron deficiency anemia type PREPARE RBC Timed 12/20/2016 Iron deficiency Results for 1:04 PM CDT anemia, this procedure unspecified iron are in the deficiency results anemia type section. TYPE AND SCREEN Timed 12/20/2016 Iron deficiency Results for 1:04 PM CDT anemia, this procedure unspecified iron are in the deficiency results anemia type section. HC COMPLETE BLD COUNT W/AUTO Routine 12/20/2016 Iron deficiency Results for DIFF 1:04 PM CDT anemia, this procedure unspecified iron are in the deficiency results anemia type section. TYPE AND SCREEN Routine 12/13/2016 Iron deficiency Results for 1:09 PM CDT anemia, this procedure unspecified iron are in the deficiency results anemia type section. HC COMPLETE BLD COUNT W/AUTO Routine 12/13/2016 Iron deficiency Results for DIFF 1:09 PM CDT anemia, this procedure unspecified iron are in the deficiency results anemia type section. TRANSFUSE RED BLOOD CELLS Routine 12/05/2016 Iron deficiency 3:10 PM CDT anemia, unspecified iron deficiency anemia type TRANSFUSE RED BLOOD CELLS Routine 12/05/2016 Iron deficiency 12:01 PM CDT anemia, unspecified iron deficiency anemia type PREPARE RBC Routine 12/04/2016 Results for 7:30 AM CDT this procedure are in the results section. TYPE AND SCREEN Routine 12/04/2016 Results for 7:30 AM CDT this procedure are in the results section. TRANSFUSE RED BLOOD CELLS Routine 11/24/2016 Iron deficiency 3:21 PM CDT anemia, unspecified iron deficiency anemia type TRANSFUSE RED BLOOD CELLS Routine 11/24/2016 Iron deficiency 12:21 PM CDT anemia, unspecified iron deficiency anemia type PREPARE RBC Timed 11/24/2016 Iron deficiency Results for 8:07 AM CDT anemia, this procedure unspecified iron are in the deficiency results anemia type section. TYPE AND SCREEN Timed 11/24/2016 Iron deficiency Results for 8:07 AM CDT anemia, this procedure unspecified iron are in the deficiency results anemia type section. after 11/18/2016 Results Transfuse RBC (11/14/2017 3:36 PM)Only the most recent of83 resultswithin the time period is included.Prepare RBC, 2 Units (11/14/2017 9:51 AM)Only the most recent of34 resultswithin the time period is included. Product name Red Blood Cells -1, [facility] DEPARTMENT OF Leukored PATHOLOGY AND GENOMIC MEDICINE Unit number [id number] [facility] DEPARTMENT OF PATHOLOGY AND GENOMIC MEDICINE Product code [id number] [facility] DEPARTMENT OF PATHOLOGY AND GENOMIC MEDICINE Dispense status Transfused [facility] DEPARTMENT OF PATHOLOGY AND GENOMIC MEDICINE Blood expiration date [facility] DEPARTMENT OF PATHOLOGY AND GENOMIC MEDICINE Blood type code 5100 [facility] DEPARTMENT OF PATHOLOGY AND GENOMIC MEDICINE Blood type O POSITIVE [facility] DEPARTMENT OF PATHOLOGY AND GENOMIC MEDICINE Product name Red Blood Cells -1, [facility] DEPARTMENT OF Leukored PATHOLOGY AND GENOMIC MEDICINE Unit number [id number] [facility] DEPARTMENT OF PATHOLOGY AND GENOMIC MEDICINE Product code [id number] [facility] DEPARTMENT OF PATHOLOGY AND GENOMIC MEDICINE Dispense status Transfused [facility] DEPARTMENT OF PATHOLOGY AND GENOMIC MEDICINE Blood expiration date [facility] DEPARTMENT OF PATHOLOGY AND GENOMIC MEDICINE Blood type code 5100 [facility] DEPARTMENT OF PATHOLOGY AND GENOMIC MEDICINE Blood type O POSITIVE [facility] DEPARTMENT OF PATHOLOGY AND GENOMIC MEDICINE Performing Organization Address City/[facility] Phone Number [facility] DEPARTMENT OF PATHOLOGY AND [address] [place] [address] GENOMIC MEDICINE Type and screen (11/14/2017 9:51 AM)Only the most recent of37 resultswithin the time period is included. ABO grouping O [facility] DEPARTMENT OF PATHOLOGY AND GENOMIC MEDICINE Rh type POS [facility] DEPARTMENT OF PATHOLOGY AND GENOMIC MEDICINE Antibody screen (gel) NEG [facility] DEPARTMENT OF PATHOLOGY AND GENOMIC MEDICINE Specimen Blood Performing Organization Address [facility] - [place] Cent[facility] Phone Number [facility] DEPARTMENT OF PATHOLOGY AND [address] [place] [address] GENOMIC MEDICINE Smear review (11/14/2017 9:34 AM)Only the most recent of6 resultswithin the time period is included. Platelet slide review Ian adequate [facility] DEPARTMENT OF PATHOLOGY AND GENOMIC MEDICINE Polychromasia Moderate [facility] DEPARTMENT OF PATHOLOGY AND GENOMIC MEDICINE Tear drop cells Occasional [facility] DEPARTMENT OF PATHOLOGY AND GENOMIC MEDICINE Ovalocytes Moderate [facility] DEPARTMENT OF PATHOLOGY AND GENOMIC MEDICINE Performing Organization Address City/[facility]/Zipcode Phone Number [facility] DEPARTMENT OF PATHOLOGY AND [address] [place] [address] GENOMIC MEDICINE CBC with platelet and differential (11/14/2017 9:34 AM)Only the most recent of27 resultswithin the time period is included. WBC 3.89 (L) 4.50 - 11.00 k/uL [facility] DEPARTMENT OF PATHOLOGY AND GENOMIC MEDICINE RBC 2.56 (L) 4.40 - 6.00 m/uL [facility] DEPARTMENT OF PATHOLOGY AND GENOMIC MEDICINE HGB 7.9 (L) 14.0 - 18.0 g/dL [facility] DEPARTMENT OF PATHOLOGY AND GENOMIC MEDICINE HCT 26.4 (L) 41.0 - 51.0 % [facility] DEPARTMENT OF PATHOLOGY AND GENOMIC MEDICINE MCV 103.1 (H) 82.0 - 100.0 fL [facility] DEPARTMENT OF PATHOLOGY AND GENOMIC MEDICINE MCH 30.9 27.0 - 34.0 pg [facility] DEPARTMENT OF PATHOLOGY AND GENOMIC MEDICINE MCHC 29.9 (L) 31.0 - 37.0 g/dL [facility] DEPARTMENT OF PATHOLOGY AND GENOMIC MEDICINE RDW - SD 59.7 (H) 37.0 - 55.0 fL [facility] DEPARTMENT OF PATHOLOGY AND GENOMIC MEDICINE MPV 10.1 8.8 - 13.2 fL [facility] DEPARTMENT OF PATHOLOGY AND GENOMIC MEDICINE Platelet count 183 150 - 400 k/uL [facility] DEPARTMENT OF PATHOLOGY AND GENOMIC MEDICINE Neutrophils 67.4 39.0 - 69.0 % [facility] DEPARTMENT OF PATHOLOGY AND GENOMIC MEDICINE Lymphocytes 21.3 (L) 25.0 - 45.0 % [facility] DEPARTMENT OF PATHOLOGY AND GENOMIC MEDICINE Monocytes 10.0 0.0 - 10.0 % [facility] DEPARTMENT OF PATHOLOGY AND GENOMIC MEDICINE Eosinophils 0.8 0.0 - 5.0 % [facility] DEPARTMENT OF PATHOLOGY AND GENOMIC MEDICINE Basophils 0.5 0.0 - 1.0 % [facility] DEPARTMENT OF PATHOLOGY AND GENOMIC MEDICINE Specimen Blood Performing Organization Address City/State/Zipcode Phone Number [facility] DEPARTMENT OF PATHOLOGY AND [address] [place] [address] GENOMIC MEDICINE Manual differential (10/31/2017 9:19 AM)Only the most recent of3 resultswithin the time period is included. Manual differential PERFORMED [facility] DEPARTMENT OF PATHOLOGY AND GENOMIC MEDICINE Neutrophils 77.0 (H) 39.0 - 69.0 % [facility] DEPARTMENT OF PATHOLOGY AND GENOMIC MEDICINE Lymphocytes 16.0 (L) 25.0 - 45.0 % [facility] DEPARTMENT OF PATHOLOGY AND GENOMIC MEDICINE Monocytes 6.0 0.0 - 10.0 % [facility] DEPARTMENT OF PATHOLOGY AND GENOMIC MEDICINE Eosinophils 0.0 0.0 - 5.0 % [facility] DEPARTMENT OF PATHOLOGY AND GENOMIC MEDICINE Basophils 1.0 0.0 - 1.0 % [facility] DEPARTMENT OF PATHOLOGY AND GENOMIC MEDICINE Metamyelocytes 0 % [facility] DEPARTMENT OF PATHOLOGY AND GENOMIC MEDICINE Promyelocytes 0 % [facility] DEPARTMENT OF PATHOLOGY AND GENOMIC MEDICINE Platelet slide review Ian adequate [facility] DEPARTMENT OF PATHOLOGY AND GENOMIC MEDICINE Anisocytosis Moderate [facility] DEPARTMENT OF PATHOLOGY AND GENOMIC MEDICINE Polychromasia Moderate [facility] DEPARTMENT OF PATHOLOGY AND GENOMIC MEDICINE Spherocytes Occasional [facility] DEPARTMENT OF PATHOLOGY AND GENOMIC MEDICINE Performing Organization Address City/[facility] Phone Number [facility] [place] [address] [employer] [facility] Estimated GFR (10/28/2017 9:19 AM)Only the most recent of5 resultswithin the time period is included. GFR Non Af Amer 44 (A) mL/min/1.73 m2 [facility] DEPARTMENT OF PATHOLOGY AND GENOMIC MEDICINE GFR Af Amer 54 (A) mL/min/1.73 m2 [facility] DEPARTMENT OF Comment: PATHOLOGY AND GENOMIC Chronic kidney disease: <60 mL/min/1.73m2 MEDICINE Kidney failure: <15 mL/min/1.73m2 The estimated GFR is calculated from the IDMS-traceable Modification of Diet in Renal Disease Equation. The accuracy of the calculation is poor when the creatinine is normal. Calculated values >90 mL/min/1.73m2 are not reported. This equation has not been validated in children (<18 years), women, the elderly (>70 years), or ethnic groups other than Caucasians and Americans. Specimen Plasma specimen Performing Organization Address City/[facility] Centercode Phone Number [facility] AND [address] [place], [place] [id number] [facility] Basic metabolic panel (10/28/2017 9:19 AM)Only the most recent of5 resultswithin the time period is included. Sodium 143 135 - 148 mEq/L [facility] DEPARTMENT OF PATHOLOGY AND GENOMIC MEDICINE Potassium 4.4 3.5 - 5.0 mEq/L [facility] DEPARTMENT OF PATHOLOGY AND GENOMIC MEDICINE Chloride 107 98 - 112 mEq/L [facility] DEPARTMENT OF PATHOLOGY AND GENOMIC MEDICINE CO2 27 24 - 31 mEq/L [facility] DEPARTMENT OF PATHOLOGY AND GENOMIC MEDICINE Anion gap 9@ANIO 7 - 15 mEq/L [facility] DEPARTMENT OF PATHOLOGY AND GENOMIC MEDICINE BUN 25 (H) 8 - 23 mg/dL [facility] DEPARTMENT OF PATHOLOGY AND GENOMIC MEDICINE Creatinine 1.5 (H) 0.70 - 1.20 mg/dL [facility] DEPARTMENT OF PATHOLOGY AND GENOMIC MEDICINE Glucose 132 (H) 65 - 99 mg/dL [facility] DEPARTMENT OF PATHOLOGY AND GENOMIC MEDICINE Calcium 8.2 (L) 8.8 - 10.2 mg/dL [facility] DEPARTMENT OF PATHOLOGY AND GENOMIC MEDICINE Specimen Plasma specimen Performing Organization Address City/[facility]ercone Phone Number [facility] DEPARTMENT OF PATHOLOGY AND [address] [place] [address] Hemoglobin & hematocrit (10/26/2017 7:13 AM) HGB 7.4 (L) 14.0 - 18.0 g/dL [facility] DEPARTMENT OF PATHOLOGY AND GENOMIC MEDICINE HCT 25.8 (L) 41.0 - 51.0 % [facility] DEPARTMENT OF PATHOLOGY AND GENOMIC MEDICINE Specimen Blood Performing Organization Address [facility] Centercode Phone Number [facility] DEPARTMENT OF PATHOLOGY AND [address] [place] [address] Creatine kinase, total (CPK) (10/26/2017 4:00 AM) Creatine kinase 15 (L) 39 - 308 U/L [facility] DEPARTMENT OF PATHOLOGY AND GENOMIC MEDICINE Specimen Plasma specimen Performing Organization Address [facility] Centercone Phone Number [facility] DEPARTMENT OF PATHOLOGY AND [address] [place] [address] Vancomycin level, trough (10/25/2017 1:00 PM) Vancomycin, trough 8.1 (L) 10.0 - 20.0 ug/mL [facility] DEPARTMENT OF Comment: PATHOLOGY AND GENOMIC Therapeutic Ranges: MEDICINE Peak 30.0 - 40.0 ug/mL Aurvwc08.0 - 20.0 ug/mL Specimen Serum Performing Organization Address City/[facility] Centercode Phone Number [facility] DEPARTMENT OF PATHOLOGY AND [address] [place] [phone] [facility] Parathyroid hormone (10/25/2017 5:15 AM) PTH 30 15 - 65 pg/mL [facility] DEPARTMENT OF PATHOLOGY AND GENOMIC MEDICINE Specimen Blood Performing Organization Address City/[facility] Centercode Phone Number [facility] DEPARTMENT OF PATHOLOGY AND [address] [place] [id number] [facility] MEDICINE US Renal (10/24/2017 6:25 PM) Narrative Performed At EXAMINATION:US RENAL RADIANT CLINICAL HISTORY:Renal failurechronic (kidney disease) COMPARISON:None IMPRESSION: 1. The right kidney measures 10 cm in length. 2. The left kidney measures 10.1 cm in length. 3. Cysts: 1.2 x 0.9 x 1 cm simple cyst from the interpolar region of the right kidney without internal vascularity. 3.7 x 3.4 x 4.1 cm and 2.5 x 1.8 x 2.3 cm simple cysts within the left kidney. 4. Hydronephrosis.: There is no hydronephrosis. 5. Masses: No suspicious masses. 6. Renal echogenicity:Increased which can be seen with medical renal disease. 7. Bladder: Bladder appears thick-walled and nonspecific. Underlying infection is possible. Please correlate with laboratory values. 8. Calculi: No calculi 9. Other Findings:None [id number] Procedure Note Interface, Radiology Results Incoming - 10/24/2017 7:13 PM CDT EXAMINATION: US RENAL CLINICAL HISTORY: Renal failure chronic (kidney disease) COMPARISON: None IMPRESSION: 1. The right kidney measures 10 cm in length. 2. The left kidney measures 10.1 cm in length. 3. Cysts: 1.2 x 0.9 x 1 cm simple cyst from the interpolar region of the right kidney without internal vascularity. 3.7 x 3.4 x 4.1 cm and 2.5 x 1.8 x 2.3 cm simple cysts within the left kidney. 4. Hydronephrosis.: There is no hydronephrosis. 5. Masses: No suspicious masses. 6. Renal echogenicity: Increased which can be seen with medical renal disease. 7. Bladder: Bladder appears thick-walled and nonspecific. Underlying infection is possible. Please correlate with laboratory values. 8. Calculi: No calculi 9. Other Findings:None [facility]-[id number] Performing Organization Address City/State/Zipcode Phone Number [facility] [address] [place] [address] XR Chest 1 Vw Portable (10/24/2017 9:29 AM) Narrative Performed At EXAMINATION:XR CHEST 1 VW PORTABLE [facility] CLINICAL HISTORY:Tachypnea COMPARISON:None IMPRESSION: Lungs are slightly hypoinflated. Minimal blunting left costophrenic angle may represent trace fluid. No infiltrate, consolidation, or pneumothorax. Cardiac mediastinal silhouette is within normal limits. Left chest port is intravenous catheter tip near SVC/RA junction. Osseous degenerative changes. [id number] Procedure Note Hm Interface, Radiology Results Incoming - 10/24/2017 9:34 AM CDT EXAMINATION: XR CHEST 1 VW PORTABLE CLINICAL HISTORY: Tachypnea COMPARISON: None IMPRESSION: Lungs are slightly hypoinflated. Minimal blunting left costophrenic angle may represent trace fluid. No infiltrate, consolidation, or pneumothorax. Cardiac mediastinal silhouette is within normal limits. Left chest port is intravenous catheter tip near SVC/RA junction. Osseous degenerative changes. [id number] Performing Organization Address City/[facility] Centercode Phone Number [facility] [address] [place] [address] Urinalysis screen and microscopy, with reflex to culture (10/24/2017 12:30 AM) Specimen site Catheterized [facility] DEPARTMENT OF PATHOLOGY AND GENOMIC MEDICINE Color, UA Straw [facility] DEPARTMENT OF PATHOLOGY AND GENOMIC MEDICINE Appearance, UA Clear [facility] DEPARTMENT OF PATHOLOGY AND GENOMIC MEDICINE Specific gravity, UA 1.012 1.001 - 1.035 [facility] DEPARTMENT OF PATHOLOGY AND GENOMIC MEDICINE pH, UA 5.0 5.0 - 8.5 [facility] DEPARTMENT OF PATHOLOGY AND GENOMIC MEDICINE Protein, UA Negative Negative [facility] DEPARTMENT OF PATHOLOGY AND GENOMIC MEDICINE Glucose, UA 1+ (A) Negative [facility] DEPARTMENT OF PATHOLOGY AND GENOMIC MEDICINE Ketones, UA Negative Negative [facility] DEPARTMENT OF PATHOLOGY AND GENOMIC MEDICINE Bilirubin, UA Negative Negative [facility] DEPARTMENT OF PATHOLOGY AND GENOMIC MEDICINE Blood, UA Negative Negative [facility] DEPARTMENT OF PATHOLOGY AND GENOMIC MEDICINE Nitrite, UA Negative Negative [facility] DEPARTMENT OF PATHOLOGY AND GENOMIC MEDICINE Urobilinogen, UA <2.0 <2.0 [facility] DEPARTMENT OF PATHOLOGY AND GENOMIC MEDICINE Leukocyte esterase, UA Negative Negative [facility] DEPARTMENT OF PATHOLOGY AND GENOMIC MEDICINE WBC, UA <1 0 - 1 /HPF [facility] DEPARTMENT OF PATHOLOGY AND GENOMIC MEDICINE RBC, UA <1 0 - 5 /HPF [facility] DEPARTMENT OF PATHOLOGY AND GENOMIC MEDICINE Bacteria, UA None seen None seen [facility] DEPARTMENT OF PATHOLOGY AND GENOMIC MEDICINE Yeast, UA Few (A) [facility] DEPARTMENT OF PATHOLOGY AND GENOMIC MEDICINE Yeast with pseudohyphae, UA None seen [facility] DEPARTMENT OF PATHOLOGY AND GENOMIC MEDICINE Specimen Urine Performing Organization Address City/[facility]/Zipcode Phone Number [facility] DEPARTMENT OF PATHOLOGY AND [address] [place] [address] [employer] MEDICINE Urine culture (10/24/2017 12:30 AM) Urine culture SEE COMMENTComment: Bacteriuria [facility] DEPARTMENT OF PATHOLOGY screen negative. AND GENOMIC MEDICINE Performing Organization Address City/State/Zipcode Phone Number [facility] DEPARTMENT OF PATHOLOGY AND [address] [place] [address] GENOMIC MEDICINE Pv duplex venous lower extremity (10/23/2017 5:05 PM) Narrative Performed At [facility] Vascular Ultrasound Laboratory Lower Extremity Venous Report [address] [place] [address] [address] Pat.Name:PARTHA ROBERSON [facility].ID:[id number] St.Date: 10/23/2017Refer.MD:ISAIAH WYATT MD Exam Time: 4:42:00 PMStudy Type:LE Venous Height:69inWeight: 175lb BSA: 1.95 m2 DOBAge:1930,87Y Sex: MALESonogrphr: Indira Quintanilla RVT Pat. Stat.:Inpatient Room:[address] TapeVol: MULUGETA, CPT - 4: [address]0727 Echo Event ID:[id number] Order ID:[id number] Reason for Study:LE swelling, pain, redness, and warm to the touch. Procedures:Colorflow, Grayscale/2D, Pulsed wave Doppler Race:C SUMMARY: DUPLEX SCAN OBSERVATIONS Deep VeinsSuperficial Veins RightLeft RightLeft EIVGSV (prox) NormalNormal CFV Normal Normal (above knee) Femoral Normal Normal GSV (dist) Normal Normal Profunda Normal Normal (below knee) Popliteal Normal Normal PT (prox) Not Visualized Not visualizedSSV Normal Normal PT (dist) Normal Normal Peroneal Normal Normal RIGHT: There is normal compressibility with no evidence of echogenic material noted within the lumen of the visualized veins. Colorflow and Doppler signals are normal. LEFT:There is normal compressibility with no evidence of echogenic material noted within the lumen of the visualized veins. Colorflow and Doppler signals are normal. PRELIMINARY FINDINGS 1. No evidence of venous thrombosis of visualized veins in bilateral lower extremities. PHYSICIAN INTERPRETATION Venous examination of the both lower extremities demonstrated no evidence of venous thrombosis in the visualized veins.Normal compressibility and augmentation of all veins visualized. Signed 10/23/2017 09:07 PM Zaid Hassan MD, RPVI Procedure Note Interface, Radiology Results In - 10/23/2017 9:07 PM CDT Vascular Ultrasound Laboratory Lower Extremity Venous Report [address] [place] [address] Pat.Name: PARTHA ROBERSON Pat.ID: [id number] St.Date: 10/23/2017 Refer.MD: ISAIAH WYATT MD Exam Time: 4:42:00 PM Study Type:LE Venous Height: 69in Weight: 175lb BSA: 1.95 m2 Age: 11 1930,87Y Sex: MALE Sonogrphr: Indira Quintanilla RVT Pat. Stat.:Inpatient Room: [address] Tape Vol: JJ, CPT - 4: [address]884 Echo Event ID:[id number] Order ID: [id number] Reason for Study:LE swelling, pain, redness, and warm to the touch. Procedures:Colorflow, Grayscale/2D, Pulsed wave Doppler Race: C SUMMARY: DUPLEX SCAN OBSERVATIONS Deep Veins Superficial Veins Right Left Right Left EIV GSV (prox) Normal Normal CFV Normal Normal (above knee) Femoral Normal Normal GSV (dist) Normal Normal Profunda Normal Normal (below knee) Popliteal Normal Normal PT (prox) Not Visualized Not visualized SSV Normal Normal PT (dist) Normal Normal Peroneal Normal Normal RIGHT: There is normal compressibility with no evidence of echogenic material noted within the lumen of the visualized veins. Colorflow and Doppler signals are normal. LEFT:There is normal compressibility with no evidence of echogenic material noted within the lumen of the visualized veins. Colorflow and Doppler signals are normal. PRELIMINARY FINDINGS 1. No evidence of venous thrombosis of visualized veins in bilateral lower extremities. PHYSICIAN INTERPRETATION Venous examination of the both lower extremities demonstrated no evidence of venous thrombosis in the visualized veins. Normal compressibility and augmentation of all veins visualized. Signed 10/23/2017 09:07 PM Zaid Hassan MD, RPVI Performing Organization Address [facility]ercone Phone Number [facility] CENTERID [address] [place] [address] Blood culture, aerobic & anaerobic (10/23/2017 4:25 PM)Only the most recent of2 resultswithin the time period is included. Blood culture isolate No growth after 5 days of incubation. [facility] DEPARTMENT OF Comment: PATHOLOGY AND GENOMIC Specimen Information MEDICINE Specimen Source: Blood Specimen Site: Arm, left Specimen Blood - Arm, left Performing Organization Address [facility]one Phone Number [facility] DEPARTMENT OF PATHOLOGY AND [address] [place] [address] GENOMIC MEDICINE after 11/18/2016 Insurance Payer Benefit Plan / Group Subscriber ID Type Phone Address [employer]ETNA MEDICARE AETNA MEDICARE HMO/[facility] xxxxxxxx HMO Home: [address] [phone] [address]
[2017-11-19] MEDS ORDERED: BUPIVACAINE 0.25% PF 10 ML VIAL ONE (12:43)
[2017-11-19] MEDS ORDERED: TETRACAINE HCL 0.5% 2ML OPTH ONE (12:43)
[2017-11-19] MEDS ORDERED: LIDOCAINE 2% MPF 5 ML VIAL ONE ×2 (12:43→13:33)
[2017-11-19] MEDS ORDERED: NA CHLORIDE 0.9% 500 ML ONE (12:44)
[2017-11-19] MEDS ORDERED: EPINEPHRINE/PF 1 MG/ML AMP ONE ×2 (12:51→12:52)
[2017-11-19] MEDS ORDERED: NS 0.9% VIAL 10 ML ONE (12:51)
[2017-11-19] MEDS ORDERED: BALANCED SALT IRRIG PLAIN 500 ML BTL IRR ONE (12:51)
[2017-11-19] MEDS ORDERED: BSS PLUS 500 ML BOTTLE IRR ONE (12:52)
[2017-11-19] MEDS: PHENYLEPHRINE 10% OPTH 5ML ONE ×3 (12:52→13:03)
[2017-11-19] MEDS: CYCLOPENTOLATE 1% OPTH 2 ML ONE ×3 (12:52→13:03)
[2017-11-19] MEDS ORDERED: MOXIFLOXACIN HCL 10 DROPS/ML **OR USE OPTH ONE (13:21)
[2017-11-19] MEDS ORDERED: PROPOFOL 200 MG/20 ML VIAL IV ONE (13:33)
[2017-11-19] MEDS: DUOVISC 1 KIT OPTH ONE ×2 (14:00→14:17)
[2017-11-19] MEDS ORDERED: DUOVISC 1 KIT OPTH ONE (14:22)
--- NOTE | 2017-11-19 14:35 | P.BOP ---
Preoperative diagnosis: Nuclear sclerotic cataract, pseudoexfoliation, fuch's, and miosis OD Postoperative diagnosis: Same Primary procedure: Phacoemulsification with IOL OD, complex with iris retractors Estimated blood loss: None Anesthesia: Local (Subtenon's infusion with anesthesia for cataract surgery) Complications: None Implants: SN60WF +22.0 Transferred to: Other (Day surgery) Condition: Good
--- NOTE | 2017-11-20 01:29 | OP ---
Date of Procedure: 11/19/2017 Surgeon: Argelia Miles MD Anesthesiologist: 1. Omid William CRNA. 2. Omid Edmonds CRNA. 3. Gurvinder Crouch MD. 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 Operation Performed: Phacoemulsification with intraocular lens implant right eye complex with the us e of iris retractors. Anesthesia: Per cataract surgery. Complications: None. Description Of The Procedure: In day surgery, the patient was prepped with Betadine and draped. A l id speculum was placed in the right eye. A conjunctival incision was made in the inferior nasal quad rant with Adal scissors. A 1:1 mixture of 2% Xylocaine and 0.25% bupivacaine was placed around t he globe. Approximately 5 mL were used. A Honan balloon was placed on the eye for approximately 5 m inutes. The patient was brought into the operative room. The patient was prepped and draped in the usual sterile fashion for ophthalmic surgery. A lid speculum was placed in the eye. Paracentesis we re made superiorly and inferiorly in the limbal cornea. Viscoat was placed in the anterior chamber. A crescent blade was used to create a tunnel incision in the temporal cornea and a keratome was used to enter the anterior chamber. Five additional paracentesis sites were created with one at the woun d, one 180 degrees from the wound, and three in the superior and inferior quadrants; through these, 5 iris retractors were placed. Provisc was placed in the eye and 360 degree capsulotomy was performed . The lens was hydrodissected with balanced salt solution and moved freely. The lens was removed in a stop and chop fashion. 30.10 CDE was required. Irrigation and aspiration was used to remove resi dual cortex. Provisc was placed in the eye. A SN60WF +22.0 diopter lens was placed in the capsular bag without complications. The iris retractors were removed. Irrigation and aspiration were used to remove residual viscoelastic. The paracentesis sites were hydrated with balanced salt solution and the wound and paracentesis sites were inspected and found to be watertight. Intracameral Vigamox 0.0 7 cc was injected at the end of the procedure. The eye was irrigated with balanced salt solution. T he eye was patched with a soft cotton patch and Phillips metal shield. The patient was returned to [facility] in good condition. Comments: BSS Plus was used. A scleral incision was created after incising the temporal conjunctiva with Adal scissors. 1:5000 epinephrine was placed in the anterior chamber prior to Viscoat. Th e pupil did not dilate properly for capsulotomy and iris retractors were used. Extra Viscoat was use d. Discharge Instructions: Mr. Roberson is discharged to home in good condition and he is to follow up w neena Miles in the morning. BRISSA/AYLEEN Voice ID: [id number] Report ID: [id number]
== END 2017-11-19 15:12 | disposition home or self-care (01) ==
LOC: OR 11:39
PROVIDERS: ATTEND Ophthalmology Retina Specialist
PROC: 08RJ3JZ Replacement of Right Lens with Synthetic Substitute, Percutaneous Approach (ICD-10-PCS; principal; 2017-11-19 11:30)
DX: H25.11 Age-related nuclear cataract, right eye (principal); H26.8 Other specified cataract; H18.51 Endothelial corneal dystrophy; H57.03 Miosis; E78.00 Pure hypercholesterolemia, unspecified; K21.9 Gastro-esophageal reflux disease without esophagitis; Z86.73 Personal history of transient ischemic attack (TIA), and cerebral infarction without residual deficits; Z90.49 Acquired absence of other specified parts of digestive tract; Z91.040 Latex allergy status
CPT/HCPCS: 66982; J0171 ×2; V2630

== ENCOUNTER 2018-12-30 18:41 | Inpatient (IN) | payer OTHER ==
[2018-12-30] MEDS ORDERED: MORPHINE 4 MG/ML SYR ONE (19:42)
[2018-12-30] MEDS ORDERED: ONDANSETRON 4 MG/2 ML VIAL ONE (19:43)
--- NOTE | 2018-12-30 20:11 | RAD REPORT ---
EXAM DESCRIPTION: CT - Pelvis Wo Cont - 12/30/2018 7:57 pm CLINICAL HISTORY: BLUNT TRAUMA, fall, pelvis and right hip pain COMPARISON: None. TECHNIQUE: Axial 2 millimeter thick images of the pelvis were obtained with sagittal and coronal ref ormatted images generated and reviewed. The CT scan was performed using dose optimization techniques as appropriate to a performed exam incl uding one or more of the following: Automated exposure control, adjustment of the mA and/or kV accord ing to patient size (this includes techniques or standardized protocols for targeted exams where dose is matched to indication/reason for exam) and use of iterative reconstruction technique. FINDINGS: Lower lumbar spine degenerative changes are present. Significant disc space narrowing and degenerative disc disease present L4-5 and L5-S1. L5 pars interarticularis defects are present with g rade 1 spondylolisthesis. No fracture of the bony pelvis. SI joint degenerative changes are present. Left hip joint and left pr oximal femur show no acute findings. AVN of the right femoral head. No dislocation of the right femoral head. Patient has a subcapital fra cture of the femur extending into the femoral neck. No intertrochanteric component seen. No pathologi c changes identified. There is impaction. Shaft is externally rotated relative to the femoral head. No significant periarticular mass or hematoma present. No suspicious findings on the pelvic floor. IMPRESSION: Subcapital right femoral neck fracture. No fracture of the bony pelvis. Advanced lower lumbar degenerative change as detailed.
--- NOTE | 2018-12-30 20:39 | EDPHYS ---
Physician Documentation [facility] Name: Harsh Roberson Age: 88 yrs Sex: Male : 1930 Arrival Date: 12/30/2018 Time: 18:44 Bed 20 Private MD: ED Physician Triston Schulz HPI: 12/30 20:34 This 88 yrs old Male presents to ER via Wheelchair with complaints of Fall ma2 Injury. 20:34 This 88 yrs old Male presents to ER via Wheelchair with complaints of Fall ma2 Injury. 20:34 Details of fall: The patient fell from an upright position. Onset: The symptoms/episode ma2 began/occurred suddenly, 1 day(s) ago. Severity of symptoms: At their worst the symptoms were moderate, in the emergency department the symptoms are unchanged. The patient has experienced a previous episode. Historical: - Allergies: 18:53 No Known Allergies; rb1 - PMHx: 18:53 blood transfusion; rb1 - PSHx: 18:53 Cholecystectomy; Appendectomy; carotid artery; rb1 18:53 cataract; rb1 - Immunization history:: Adult Immunizations up to date. - Social history:: Smoking status: Patient/guardian denies using tobacco, Patient/guardian denies using alcohol, street drugs, The patient lives with family. - Ebola Screening: : Patient negative for fever greater than or equal to 101.5 degrees Fahrenheit, and additional compatible Ebola Virus Disease symptoms. - Family history:: not pertinent. ROS: 20:34 Constitutional: Negative for fever, chills, and weight loss, Cardiovascular: Negative ma2 for chest pain, palpitations, and edema, Respiratory: Negative for shortness of breath, cough, wheezing, and pleuritic chest pain, Abdomen/GI: Negative for abdominal pain, nausea, diarrhea, and constipation, Skin: Negative for injury, rash, and discoloration, Neuro: Negative for headache, weakness, numbness, tingling, and seizure. 20:34 All other systems are negative. Exam: 20:34 Constitutional: This is a well developed, well nourished patient who is awake, alert, ma2 and in no acute distress. Chest/axilla: Normal chest wall appearance and motion. Nontender with no deformity. No lesions are appreciated. Cardiovascular: Regular rate and rhythm with a normal S1 and S2. No gallops, murmurs, or rubs. Normal PMI, no JVD. No pulse deficits. Respiratory: Lungs have equal breath sounds bilaterally, clear to auscultation and percussion. No rales, rhonchi or wheezes noted. No increased work of breathing, no retractions or nasal flaring. Abdomen/GI: Soft, non-tender, with normal bowel sounds. No distension or tympany. No guarding or rebound. No evidence of tenderness throughout. Back: No spinal tenderness. No costovertebral tenderness. Full range of motion. Skin: Warm, dry with normal turgor. Normal color with no rashes, no lesions, and no evidence of cellulitis. MS/ Extremity: ttp over right hip, otherwise Pulses equal, no cyanosis. Neurovascular intact. limited rom on right hip, other joints with Full, normal range of motion. Neuro: Awake and alert, GCS 15, oriented to person, place, time, and situation. Cranial nerves II-XII grossly intact. Motor strength 5/5 in all extremities. Sensory grossly intact. Cerebellar exam normal. Normal gait. Vital Signs: 18:48 BP 157 / 67; Pulse 71; Resp 17; Temp 98.4(O); Pulse Ox 98% on R/A; Weight 77.11 kg; rb1 Height 5 ft. 9 in. (175.26 cm) (R); Pain 0/10; 20:06 BP 150 / 58; Pulse 75; Resp 18; Pulse Ox 98% on R/A; Pain 3/10; wh 21:00 BP 160 / 58; Pulse 87; Resp 18; Pulse Ox 94% on R/A; wh 22:13 BP 149 / 56; Pulse 90; Resp 18; Pulse Ox 99% 2 lpm ; wh 18:48 Body Mass Index 25.10 (77.11 kg, 175.26 cm) rb1 MDM: 18:56 Patient medically screened. ma2 20:34 Differential diagnosis: abrasion, contusion, fracture, laceration. Data reviewed: vital ma2 signs, nurses notes. Counseling: I had a detailed discussion with the patient and/or guardian regarding: the historical points, exam findings, and any diagnostic results supporting the discharge/admit diagnosis, the presence of at least one elevated blood pressure reading (>120/80) during this emergency department visit, the need for further work-up and treatment in the hospital. ED course: discussed and accepted by dr. troncoso and kvng . 12/30 21:02 Order name: CBC with Diff 12/30 21:02 Order name: BMP 12/30 19:22 Order name: CT Pelvis wo Cont; Complete Time: 20:30 [facility] 12/30 20:33 Order name: Hip Right 2 View XRAY [facility] 12/30 21:02 Order name: PT-INR 12/30 19:22 Order name: Wound Care; Complete Time: 20:21 ma2 Administered Medications: 19:45 Drug: Zofran 4 mg Route: IVP; Site: right antecubital; 22:15 Follow up: Response: No adverse reaction; Nausea is decreased 19:48 Drug: morphine 4 mg {Note: RASS 0.} Route: IVP; Site: right antecubital; 22:14 Follow up: Response: No adverse reaction; Pain is decreased; RASS: Alert and Calm (0) 21:23 Drug: Dilaudid 1 mg {Note: RASS 0.} Route: IVP; Site: right antecubital; 22:15 Follow up: Response: No adverse reaction; Pain is decreased; RASS: Alert and Calm (0) Disposition: 12/30/18 20:38 Hospitalization ordered by Reno Willams for Inpatient Admission. Preliminary diagnosis is Fracture of unspecified part of neck of right femur. - Bed requested for Telemetry/MedSurg (Inpatient). - Status is Inpatient Admission. - Condition is Stable. - Problem is new. - Symptoms are unchanged. UTI on Admission? No Signatures: Dispatcher [employer] EDIA Jessica Allen RN RN Jaimee Christopher RN RN [facility] Nathanael Grimm Triston Schulz MD MD ma2 Corrections: (The following items were deleted from the chart) 20:21 19:22 Dermabond ordered. [facility] 22:06 20:38 Hospitalization Ordered by Reno Willams for Inpatient Admission. Preliminary diagnosis is Fracture of unspecified part of neck of right femur. Bed requested for Telemetry/MedSurg (Inpatient). Status is Inpatient Admission. Condition is Stable. Problem is new. Symptoms are unchanged. UTI on Admission? No. ma2 23:30 22:06 12/30/2018 20:38 Hospitalization Ordered by Reno Willams for Inpatient Admission. Preliminary diagnosis is Fracture of unspecified part of neck of right femur. Bed requested for Telemetry/MedSurg (Inpatient). Status is Inpatient Admission. Condition is Stable. Problem is new. Symptoms are unchanged. UTI on Admission? No. mw
--- NOTE | 2018-12-30 20:39 | ER ---
Nurse's Notes [facility] Name: Harsh Roberson Age: 88 yrs Sex: Male : 1930 Arrival Date: 12/30/2018 Time: 18:44 Bed 20 Private MD: Diagnosis: Fracture of unspecified part of neck of right femur Presentation: 12/30 18:48 Presenting complaint: Patient states: Fell 30 minutes ago while walking backwards with rb1 a plant. Denies hitting head, LOC. Landed on ceramic tile hitting right elbow and right hip. Pain 8/10 when he moves around, sitting still pain 0/10. Transition of care: patient was not received from another setting of care. Onset of symptoms was December 30, 2018 at 18:20. Risk Assessment: Do you want to hurt yourself or someone else? Patient reports no desire to harm self or others. Care prior to arrival: None. 18:48 Method Of Arrival: Wheelchair rb1 18:48 Initial Sepsis Screen: Does the patient meet any 2 criteria? No. Patient's initial rb1 sepsis screen is negative. 18:48 Acuity: JYOTSNA 4 rb1 18:48 Initial Sepsis Screen: Does the patient have a suspected source of infection? No. rb1 Patient's initial sepsis screen is negative. Historical: - Allergies: 18:53 No Known Allergies; rb1 - PMHx: 18:53 blood transfusion; rb1 - PSHx: 18:53 Cholecystectomy; Appendectomy; carotid artery; rb1 18:53 cataract; rb1 - Immunization history:: Adult Immunizations up to date. - Social history:: Smoking status: Patient/guardian denies using tobacco, Patient/guardian denies using alcohol, street drugs, The patient lives with family. - Ebola Screening: : Patient negative for fever greater than or equal to 101.5 degrees Fahrenheit, and additional compatible Ebola Virus Disease symptoms. - Family history:: not pertinent. Screenin:05 Abuse screen: Denies threats or abuse. Denies injuries from another. Nutritional wh screening: No deficits noted. Tuberculosis screening: No symptoms or risk factors identified. Fall Risk Fall in past 12 months (25 points). Assessment: 19:10 General: Appears in no apparent distress. Behavior is calm, cooperative, appropriate wh for age. Pain: Complains of pain in right hip Pain radiates to right leg Pain currently is 8 out of 10 on a pain scale. Quality of pain is described as dull. Neuro: Level of Consciousness is awake, alert, obeys commands, Oriented to person, place, time, situation, Appropriate for age. Cardiovascular: Heart tones S1 S2. Respiratory: Airway is patent Respiratory effort is even, unlabored, Respiratory pattern is regular, symmetrical, Breath sounds are clear bilaterally. GI: Abdomen is flat, non-distended. : No signs and/or symptoms were reported regarding the genitourinary system. EENT: No signs and/or symptoms were reported regarding the EENT system. Derm: Skin is intact, is healthy with good turgor, Skin is pink, warm \T\ dry. normal. Musculoskeletal: Range of motion: limited in right hip. 19:45 Reassessment: Pt stated he has a Port A Cath but Pt refuses port a cath to be accessed wh right now, explained to Pt that we may need to poke him for blood draws if need be, Pt agreeable. 20:03 Reassessment: Patient appears in no apparent distress at this time. No changes from previously documented assessment. Patient and/or family updated on plan of care and expected duration. Pain level reassessed. Patient is alert, oriented x 3, equal unlabored respirations, skin warm/dry/pink. 21:10 Reassessment: Patient appears in no apparent distress at this time. No changes from previously documented assessment. Patient and/or family updated on plan of care and expected duration. Pain level reassessed. Patient is alert, oriented x 3, equal unlabored respirations, skin warm/dry/pink. Dr Willams at bedside explaining POC. 22:16 Reassessment: Patient appears in no apparent distress at this time. No changes from previously documented assessment. Patient and/or family updated on plan of care and expected duration. Pain level reassessed. Patient is alert, oriented x 3, equal unlabored respirations, skin warm/dry/pink. Patient states feeling better. Vital Signs: 18:48 BP 157 / 67; Pulse 71; Resp 17; Temp 98.4(O); Pulse Ox 98% on R/A; Weight 77.11 kg; rb1 Height 5 ft. 9 in. (175.26 cm) (R); Pain 0/10; 20:06 BP 150 / 58; Pulse 75; Resp 18; Pulse Ox 98% on R/A; Pain 3/10; wh 21:00 BP 160 / 58; Pulse 87; Resp 18; Pulse Ox 94% on R/A; wh 22:13 BP 149 / 56; Pulse 90; Resp 18; Pulse Ox 99% 2 lpm ; wh 18:48 Body Mass Index 25.10 (77.11 kg, 175.26 cm) rb1 ED Course: 18:44 Patient arrived in ED. cl3 18:53 Arm band placed on left wrist. rb1 18:55 Triage completed. rb1 18:56 Triston Schulz MD is Attending Physician. ma2 19:01 Darrin Haynes, GABRIELA is Primary Nurse. bp 19:10 Patient has correct armband on for positive identification. Placed in gown. Bed in low wh position. Call light in reach. Side rails up X 1. Pulse ox on. NIBP on. 19:30 Inserted saline lock: 20 gauge in right antecubital area, using aseptic technique. Blood collected. 19:58 CT Pelvis wo Cont In Process Unspecified. EDMS 20:36 Reno Willams is Hospitalizing Provider. ma2 21:13 Hip Right 2 View XRAY In Process Unspecified. EDMS Administered Medications: 19:45 Drug: Zofran 4 mg Route: IVP; Site: right antecubital; 22:15 Follow up: Response: No adverse reaction; Nausea is decreased 19:48 Drug: morphine 4 mg {Note: RASS 0.} Route: IVP; Site: right antecubital; 22:14 Follow up: Response: No adverse reaction; Pain is decreased; RASS: Alert and Calm (0) 21:23 Drug: Dilaudid 1 mg {Note: RASS 0.} Route: IVP; Site: right antecubital; 22:15 Follow up: Response: No adverse reaction; Pain is decreased; RASS: Alert and Calm (0) Outcome: 20:38 Decision to Hospitalize by Provider. ma2 23:30 Patient left the ED. Signatures: Dispatcher [employer] EDMS Jaimee Christopher RN RN rb1 Nathanael Grimm Darrin Haynes RN RN bp Alzahri, Mohammad, MD MD ma2 Eldon Rucker cl3 Corrections: (The following items were deleted from the chart) 18:57 18:48 Presenting complaint: Patient states: Fell 30 minutes ago while walking backwards rb1 with a plant. Denies hitting head, LOC. Landed on ceramic tile hitting right elbow and right hip. Pain 09/28 rb1 20:09 20:06 BP 150 / 58; Pulse 75bpm; Resp 18bpm; Pulse Ox 80%; wh wh
[2018-12-30] MEDS ORDERED: HYDROMORPHONE HCL 1 MG/ML INJ ONE (21:07)
[2018-12-30 21:22] LABS: Absolute Lymphocytes (CBC) 1.3 K/uL (0.7-4.9); Basophils % 0.5 % (0-1.3); Lymphocytes % 34.1 % (15.3-44.8); MPV 9.2 fL (7.6-11.3); RBC Red Blood Cell Count 2.63 M/uL (4.33-5.43)
[2018-12-30 21:29] LABS: Protime INR 0.95
[2018-12-30 21:34] LABS: Potassium 4.4 mmol/L (3.5-5.1)
--- NOTE | 2018-12-30 21:56 | P.HP ---
Certification for Inpatient Patient admitted to: Inpatient With expected LOS: >2 Midnights Practitioner: I am a practitioner with admitting privileges, knowledge of patient current condition, hospital course, and medical plan of care. Services: Services provided to patient in accordance with Admission requirements found in Title 42 Section 412.3 of the Code of Federal Regulations Patient History Date of Service: 12/31/18 Reason for admission: Fall with hip fracture History of Present Illness: Patient is 88-year-old gentleman with a history intestinal angiodysplasia with recurrent anemia status multiple blood transfusions. He gets transfused weekly due to persistent melena. He presented to the emergency department after a fall at home. He missed a step and fell landing on his right hip while carrying a pot of plant into his house. In the ED, pelvic CT demonstrated right femoral neck fracture. Orthopedic surgeon-Dr. Mayo was informed and he plans to perform ORIF. Hospitalist service is called to admit him for further management. Allergies adhesive tape Allergy (Verified 11/16/17 11:27) redness Home Medications: Acetaminophen [Tylenol Extra Strength] 500 mg PO PRN PRN 10/13/16 Amlodipine Besylate [Norvasc] 2.5 mg PO DAILY 10/13/16 Cholecalciferol (Vitamin D3) [Vitamin D3] 2,000 mg PO DAILY 10/13/16 Cyanocobalamin [Vitamin B-12*] 1,000 mcg IJ SEECOM 10/13/16 Multivit-Min/FA/Lycopen/Lutein [Centrum Silver Tablet] 1 tab PO DAILY 10/13/16 Mometasone Furoate [Nasonex] 1 spray NS DAILY PRN 11/16/16 Ferumoxytol Fe 15 mg IV SEECOM 11/16/17 Tamsulosin HCl [Flomax] 0.4 mg PO DAILY 11/16/17 Escitalopram Oxalate [Lexapro] 5 mg PO DAILY 12/31/18 - Past Medical/Surgical History -: Intestinal angiodysplasias -: BPH -: Hypertension -: Anxiety disorder -: Multiple endoscopies and intestinal mucosa cauterization -: Cataract surgery - Family History Mother -: Other (see notes) (Aplastic anemia) Father -: Heart disease, Hypertension Notes: [place] - Social History Smoking Status: Never smoker Alcohol use: No CD- Drugs: No Review of Systems Other: General: No fever, no malaise, no unintentional weight loss. Eyes: No eye discharge, Respiratory: No cough, no shortness of breath. CVS: No chest pain, no palpitation, no lightheadedness. GI: No abdominal pain, no nausea no vomit, no constipation, no diarrhea. Genitourinary: No dysuria, no urinary frequency, no incontinence, no hematuria. Musculoskeletal: No joint pains, or joint swelling, no gait instability. Neurology: No headache, no asymmetric, weakness, no problem with swallowing. Except as documented, all other systems reviewed and negative. Physical Examination - Physical Exam General: Alert, In no apparent distress, Oriented x3 HEENT: Atraumatic, Normocephalic, PERRLA, Mucous membr. moist/pink, Sclerae nonicteric Neck: Supple, JVD not distended, No Thyromegaly Respiratory: Clear to auscultation bilaterally, Normal air movement Cardiovascular: No edema, Regular rate/rhythm, Normal S1 S2 Capillary refill: <2 Seconds Gastrointestinal: Normal bowel sounds, Soft and benign, Non-distended, No tenderness Musculoskeletal: No swelling, Other (Laterally rotated right lower extremity.) Integumentary: No rashes Neurological: Normal speech, Other (Motor in all limbs are 5/5 except right lower extremity which was not assessed) - Studies Laboratory Data (last 24 hrs) 12/30/18 19:25: PT 11.2, INR 0.95 12/30/18 19:25: Sodium 143, Potassium 4.4, BUN 29 H, Creatinine 1.70 H, Glucose 115 H 12/30/18 19:25: WBC 3.9 L, Hgb 8.2 L, Hct 26.0 L, Plt Count 180 Assessment and Plan - Problems (Diagnosis) (1) Closed right femoral fracture Current Visit: Yes Status: Acute (2) Angiodysplasia of intestine Current Visit: Yes Status: Chronic (3) Chronic anemia Current Visit: Yes Status: Chronic (4) BPH (benign prostatic hyperplasia) Current Visit: Yes Status: Chronic (5) Hypertension Current Visit: Yes Status: Chronic (6) Chronic kidney disease, stage 3 Current Visit: Yes Status: Chronic - Plan Admit to general medical floor Pain management with IV morphine IV hydration Current hemoglobin is 8.2 Monitor H&H daily and transfuse p.r.n. to keep hemoglobin greater than 8 before surgery and after surgery. No aspirin, no anticoagulants for DVT prophylaxis. Use SCD for DVT prophylaxis. Continue home antihypertensives Continue Flomax NPO post midnight. - Advance Directives Does patient have a Living Will: No Does patient have a Durable POA for Healthcare: No
[2018-12-30] MEDS ORDERED: ONDANSETRON 4 MG/2 ML VIAL IV PRN (23:24)
[2018-12-30 23:42] VITALS: BMI 25.2
[2018-12-31] MEDS: NA CHLORIDE 0.9% 1,000 ML IV SCH ×3 (00:40→21:25)
[2018-12-31 01:03] LABS: Urine Appearance CLEAR; Urine Bilirubin NEGATIVE (NEG); Urine Blood NEGATIVE (NEG); Urine Color YELLOW; Urine Glucose TRACE (NEG); Urine Protein NEGATIVE (NEG); Urine Urobilinogen 0.2 mg/dL (0.2-1.0)
[2018-12-31 01:06] LABS: Urine Microscopic Reflex NO UMIC
[2018-12-31 04:40] LABS: Absolute Lymphocytes (CBC) 1.7 K/uL (0.7-4.9); Basophils % 0.6 % (0-1.3); Hematocrit 24.7 % (39.6-49.0); Lymphocytes % 33.5 % (15.3-44.8); MPV 8.6 fL (7.6-11.3); RBC Red Blood Cell Count 2.53 M/uL (4.33-5.43)
[2018-12-31 04:52] LABS: Potassium 4.9 mmol/L (3.5-5.1)
--- NOTE | 2018-12-31 08:24 | RAD REPORT ---
EXAM DESCRIPTION: RAD - Hip Right 2 View - 12/30/2018 9:12 pm CLINICAL HISTORY: Fall, hip pain COMPARISON: None. FINDINGS: AP and cross-table lateral views were obtained. Subcapital impacted right femur fracture i s present. No intertrochanteric involvement seen. No pathologic component. Femoral head remains jsoe eduardo lly positioned in the acetabulum. No significant soft tissue finding. IMPRESSION: Subcapital, impacted right femoral neck fracture.
[2018-12-31] MEDS: MORPHINE 4 MG/ML SYR IV PRN ×3 (09:16→18:17)
--- NOTE | 2018-12-31 11:53 | CON ---
Reason For Consultation: Right hip fracture. History Of Present Illness: Mr. Roberson is an 88-year-old gentleman who has a right femoral neck fra cture. He was evaluated in the emergency room last evening. He is admitted for orthopedic managemen t of this condition. His past medical history is significant for an angiodysplasia with significant blood loss. He reports that he bleeds profusely because of his angiodysplasia. His hemoglobin is ch ronically low. He gets 2 units of blood transfusion each week. He is on no anticoagulation because of his blood loss. He expresses concern about being on blood thinners because of his angiodysplasia. Physical Examination: General: He is well developed, well nourished. Alert and oriented x3. Musculoskeletal: Complains of pain in his right hip. Imaging Studies: X-rays reveal there to be a displaced right femoral neck fracture. Plan: Will be to do hemiarthroplasty; however, angiodysplasia will need to be put to rest along with his other medical conditions prior to proceeding with surgery. ROSANNA Voice ID: [id number] Report ID: [id number]
--- NOTE | 2018-12-31 15:26 | P.SSS ---
Patient History Date of Service: 12/31/18 Reason for admission: Fall with hip fracture History of Present Illness: Patient is 88-year-old gentleman with a history intestinal angiodysplasia with recurrent anemia status multiple blood transfusions. He gets transfused weekly due to persistent melena. He presented to the emergency department after a fall at home. He missed a step and fell landing on his right hip while carrying a pot of plant into his house. In the ED, pelvic CT demonstrated right femoral neck fracture. Orthopedic surgeon-Dr. Mayo was informed and he plans to perform ORIF. Hospitalist service is called to admit him for further management. Allergies adhesive tape Allergy (Verified 11/16/17 11:27) redness Home Medications: Acetaminophen [Tylenol Extra Strength] 500 mg PO PRN PRN 10/13/16 Amlodipine Besylate [Norvasc] 2.5 mg PO DAILY 10/13/16 Cholecalciferol (Vitamin D3) [Vitamin D3] 2,000 mg PO DAILY 10/13/16 Cyanocobalamin [Vitamin B-12*] 1,000 mcg IJ SEECOM 10/13/16 Multivit-Min/FA/Lycopen/Lutein [Centrum Silver Tablet] 0.5 tab PO DAILY Mometasone Furoate [Nasonex] 1 spray NS DAILY PRN 11/16/16 Ferumoxytol Fe 15 mg IV SEECOM 11/16/17 Tamsulosin HCl [Flomax] 0.4 mg PO DAILY 11/16/17 Escitalopram Oxalate [Lexapro] 5 mg PO DAILY 12/31/18 - Past Medical/Surgical History Has patient received pneumonia vaccine in the past: Yes Diabetic: No -: Intestinal angiodysplasias -: BPH -: Hypertension -: Anxiety disorder -: anemia -: HTN -: Multiple endoscopies and intestinal mucosa cauterization -: Cataract surgery -: appendectomy -: jyoti -: carotid artery surgery - Family History Mother -: Other (see notes) (Aplastic anemia) Notes: anemia Father -: Heart disease, Hypertension Notes: SC - Social History Smoking Status: Never smoker Alcohol use: No CD- Drugs: No Caffeine use: Yes Place of Residence: Home Review of Systems 10-point ROS is otherwise unremarkable Physical Examination - Vital Signs Temperature: 100.1 F Blood Pressure: 128/78 Pulse: 74 Respirations: 18 Pulse Ox (%): 95 - Physical Exam General: Alert, In no apparent distress HEENT: Atraumatic, PERRLA, Mucous membr. moist/pink, EOMI, Sclerae nonicteric Neck: Supple, 2+ carotid pulse no bruit, No LAD, Without JVD or thyroid abnormality Respiratory: Clear to auscultation bilaterally, Normal air movement Cardiovascular: Regular rate/rhythm, Normal S1 S2 Gastrointestinal: Normal bowel sounds, No tenderness Musculoskeletal: No tenderness Integumentary: No rashes Neurological: Normal gait, Normal speech, Normal strength at 5/5 x4 extr, Normal tone, Normal affect Lymphatics: No axilla or inguinal lymphadenopathy - Studies Laboratory Data (last 24 hrs) 12/30/18 19:25: PT 11.2, INR 0.95 12/30/18 19:25: Sodium 143, Potassium 4.4, BUN 29 H, Creatinine 1.70 H, Glucose 115 H 12/30/18 19:25: WBC 3.9 L, Hgb 8.2 L, Hct 26.0 L, Plt Count 180 - Diagnosis (Problem(s)) (1) Closed right femoral fracture Current Visit: Yes Status: Acute (2) Angiodysplasia of intestine Current Visit: Yes Status: Chronic (3) BPH (benign prostatic hyperplasia) Current Visit: Yes Status: Chronic (4) Chronic anemia Current Visit: Yes Status: Chronic (5) Chronic kidney disease, stage 3 Current Visit: Yes Status: Chronic (6) Hypertension Current Visit: Yes Status: Chronic Treatment Summary: Patient was transferred to [facility] for further care. Orthopedics felt like patient was too complicated to be taking care of here due to his history of angiodysplasia and would like to get IVC filter placed to address the anti coagulation ischial before the surgery. Patient has been seen by map colorer at [facility] and thus [facility] was called. Hospital as there along with orthopedic doctor accepted the patient stating that they would actually proceed with the surgery 1st and then be placing IVC filter however since the patient has been seen here in the hospital by the map colorer that will accept the patient for continuity of care. Patient was transferred there for further care once bed was available. - Disposition Disposition: ROUTINE DISCHARGE
[2018-12-31] MEDS: CEFAZOLIN/SWI 1gm 1 GM/10 ML SYR IVP SCH (17:26)
[2018-12-31] MEDS: AMLODIPINE 2.5 MG TAB PO SCH (21:24)
[2018-12-31] MEDS: ACETAMINOPHEN 500 MG TAB PO PRN (21:28)
[2019-01-01] MEDS: NA CHLORIDE 0.9% 1,000 ML IV SCH ×3 (05:22→15:24)
[2019-01-01] MEDS: ACETAMINOPHEN 500 MG TAB PO PRN ×2 (05:35→13:59)
[2019-01-01] MEDS: CEFAZOLIN/SWI 1gm 1 GM/10 ML SYR IVP SCH (08:28)
[2019-01-01] MEDS: AMLODIPINE 2.5 MG TAB PO SCH (08:28)
[2019-01-01] MEDS ORDERED: HOME MED 1 EA UNK (Escitalopram Oxalate [Lexapro] 5 MG) PO SCH (09:00)
[2019-01-01] MEDS: MORPHINE 4 MG/ML SYR IV PRN ×2 (09:13→15:17)
[2019-01-01 10:25] VITALS: O2SAT 97
[2019-01-01 14:25] LABS: Albumin 2.4 g/dL (3.4-5.0); Bilirubin Total 0.8 mg/dL (0.2-1.0); Potassium 4.6 mmol/L (3.5-5.1); Protein, Total 4.4 g/dL (6.4-8.2)
[2019-01-01 14:44] LABS: Absolute Lymphocytes (CBC) 1.2 K/uL (0.7-4.9); Basophils % 0.6 % (0-1.3); Hematocrit 24.1 % (39.6-49.0); Lymphocytes % 27.6 % (15.3-44.8); MPV 9.2 fL (7.6-11.3); RBC Red Blood Cell Count 2.46 M/uL (4.33-5.43)
--- NOTE | 2019-01-01 14:58 | P.PN ---
Subjective Date of Service: 01/01/19 Chief Complaint: Fall with hip fracture Subjective: Tolerating diet, Other (Still awaiting bed at [facility] vs [facility]. called transfer center and explained the urgency of the situation for transfer. Was told no beds so far. Will call back if any avaiable.) Review of Systems 10-point ROS is otherwise unremarkable Physical Examination - Vital Signs Temperature: 98.7 F Blood Pressure: 156/70 Pulse: 78 Respirations: 16 Pulse Ox (%): 96 - Physical Exam General: Alert, In no apparent distress HEENT: Atraumatic, PERRLA, EOMI Neck: Supple, JVD not distended Respiratory: Clear to auscultation bilaterally, Normal air movement Cardiovascular: Regular rate/rhythm, Normal S1 S2 Gastrointestinal: Normal bowel sounds, No tenderness Musculoskeletal: No tenderness Integumentary: No rashes Neurological: Normal speech, Normal tone, Normal affect Lymphatics: No axilla or inguinal lymphadenopathy - Studies Medications List Reviewed: Yes Assessment And Plan - Current Problems (Diagnosis) (1) Closed right femoral fracture Current Visit: Yes Status: Acute Qualifiers: Encounter type: initial encounter Femur location: unspecified portion of femur Fracture morphology: unspecified fracture morphology Qualified Code(s) : S72.91XA - Unspecified fracture of right femur, initial encounter for closed fracture (2) Angiodysplasia of intestine Current Visit: Yes Status: Chronic (3) BPH (benign prostatic hyperplasia) Current Visit: Yes Status: Chronic (4) Chronic anemia Current Visit: Yes Status: Chronic (5) Chronic kidney disease, stage 3 Current Visit: Yes Status: Chronic (6) Hypertension Current Visit: Yes Status: Chronic Qualifiers: Hypertension type: essential hypertension Qualified Code(s): I10 - Essential (primary) hypertension - Plan Pending transfer at this time. Ortho made aware of the situation. Reccs to continue with transfer. Will continue to await on bed.
[2019-01-01 15:28] LABS: Protime INR 1.11
[2019-01-01 16:19] VITALS: BP 150/63; TEMP 98.6
[2019-01-01] MEDS ORDERED: [UNRECOGNIZED DRUG - OTHER] IV SCH (17:15)
--- NOTE | 2019-01-01 18:19 | RAD REPORT ---
EXAM DESCRIPTION: USExtrem Venous W Compress Bil01/01/2019 6:10 pm CLINICAL HISTORY: Leg pain COMPARISON: none FINDINGS: Evaluation of the right popliteal vein and left posterior tibial vein limited due to patie nt positioning and bandaging. The remainder of the common femoral, superficial femoral, popliteal and posterior tibial veins bilate rally are compressible and demonstrate augmentation. Doppler demonstrates good flow. IMPRESSION: No evidence of deep venous thrombosis involving either lower extremity.
[2019-01-02] MEDS ORDERED: CHOLECALCIFEROL 2000 MG PO SCH (09:00)
[2019-01-02] MEDS ORDERED: MULTIVIT W/ MINERAL TAB PO SCH (09:00)
[2019-01-02] MEDS ORDERED: TAMSULOSIN 0.4 MG SR CAP PO SCH (09:00)
== END 2019-01-01 19:10 | disposition short-term general hospital (02) | DRG 536 ==
LOC: ER 18:41 → ERHOLD 22:09 → 4TH 22:49
PROVIDERS: ADMIT Internal Medicine; ATTEND Internal Medicine
DX: S72.011A Unspecified intracapsular fracture of right femur, initial encounter for closed fracture (principal); W10.9XXA Fall (on) (from) unspecified stairs and steps, initial encounter; Y92.009 Unspecified place in unspecified non-institutional (private) residence as the place of occurrence of the external cause; K55.20 Angiodysplasia of colon without hemorrhage; I12.9 Hypertensive chronic kidney disease with stage 1 through stage 4 chronic kidney disease, or unspecified chronic kidney disease; N18.3 Chronic kidney disease, stage 3 (moderate); N40.0 Benign prostatic hyperplasia without lower urinary tract symptoms; D64.9 Anemia, unspecified
CPT/HCPCS: 36415; 72192; 80048; 80053; 81003; 85025; 85610; 85730; 93970; 94760; 96374; 96375; 99284; J0690; J1170; J2405; J7030